=== PATIENT | female | born 1995 | race Caucasian/White ===

== ENCOUNTER → 2023-09-21 09:34 | Outpatient (BNVA) | payer OTHER, SELFPAY | PROVIDERS: Visit Provider Physician Assistant Medical | DX: S46.212A Strain of muscle, fascia and tendon of other parts of biceps, left arm, initial encounter (principal); X50.0XXA Overexertion from strenuous movement or load, initial encounter | CPT/HCPCS: 99202 ==

== ENCOUNTER → 2023-09-25 12:48 | Outpatient (BNVA) | payer OTHER, SELFPAY | PROVIDERS: Visit Provider Registered Nurse | DX: S46.212A Strain of muscle, fascia and tendon of other parts of biceps, left arm, initial encounter (principal); X50.0XXA Overexertion from strenuous movement or load, initial encounter | CPT/HCPCS: 99203 ==

== ENCOUNTER → 2023-10-03 11:09 | Outpatient (BNVA) | payer OTHER, SELFPAY | PROVIDERS: Visit Provider Physician Assistant Medical | DX: S46.212A Strain of muscle, fascia and tendon of other parts of biceps, left arm, initial encounter (principal); X50.0XXA Overexertion from strenuous movement or load, initial encounter | CPT/HCPCS: 99213 ==

== ENCOUNTER 2024-12-27 10:44 | Outpatient (AMB) | payer BC, SELFPAY ==
--- NOTE | 2024-12-27 10:47 | MHC.PC.OV ---
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 Intake Note: New patient to establish care and cpe Conveyor Belt Repairer Required: No Allergies preservative Allergy (Severe, Uncoded 12/27/24 11:13) Unknown Medication List - Last Reviewed 12/27/24 by Karina Krishnan MA No Known Home Meds Tobacco use date assessed: 12/27/24 Dental Screening Dental Screen Date: 12/27/24 Did you have a dental visit in the last 12 months?: Yes Did you have a dental problem in the last 6 months where you did not have access to dental care?: No Was dental information given to patient?: Patient has dentist HPI HPI Comments History of Present Illness Details 29 y/o F with psoriasis, obesity, eczema, gluten sensitivity, LIBERTY, Fhx celiac, PVC surgery: R ACL reconstruction, R patella tendon debridement Fhx: Mom asthma, HLD; Dad HTN HLD; PGM HTN HLD CVD; MGF esop ca; PGF HTN HLD CVD Health Maintenance Flu 12/2024 Tdap declined [facility] 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 Stress-induced Anxiety: - Anxiety symptoms; previous Venlafaxine use discontinued. Not in counseling currently; was and declined. Review of Systems - Gastrointestinal: Reports bloating, cramping, discomfort. Denies other unusual symptoms. - Cardiovascular: Reports PVC occurrences. - Skin: Reports psoriasis, rashes, decreased since eliminating gluten. - Endocrine: Reports hair loss, heavier periods. - Psychological: Reports anxiety exacerbated by GI issues. Physical Exam General: Well developed, well nourished, in no acute distress. Appears stated age. Head: Normocephalic, atraumatic. Eyes: Pupils are equal, round and reactive to light and accommodation. Conjunctivae are clear. Vision grossly normal. Lungs: Clear to auscultation bilaterally. No rales, rhonchi or wheeze noted. Good air flow in all johansen. Heart: Regular rate and rhythm. No murmurs, click, rubs or gallops are noted. Abdomen: Bowel sounds present in all quadrants. The abdomen is soft, nontender, with no masses or organomegaly noted. No hernias are noted. Musculoskeletal: Joints are nontender, without swelling, redness, or effusions. Pulses: Peripheral pulses are equal and palpable bilaterally. Extremities: No clubbing, cyanosis nor edema is noted. Psych: Mood and affect appropriate. Results Pending Discussion Notes I discussed the patient's gastrointestinal symptoms, attributed largely to gluten sensitivity and possible IBS. The patient noted significant improvement after eliminating gluten but experienced worsened symptoms following accidental gluten ingestion. Given the family history of celiac disease, I explained potential investigations and dietary recommendations. I noted the association between her anxiety and gastrointestinal issues and discussed stress-management strategies. A stool test for H. pylori and fecal calprotectin will be performed. I addressed potential hormonal imbalances affecting menstrual and hair loss concerns with plans for comprehensive lab work. We proceeded to discuss the utility of food supplements and the necessity of pursuing further GI evaluation to ensure comprehensive assessment. Referral recommendations to both gastroenterology and INSPECTING MACHINE ADJUSTER were provided given family and personal health planning considerations. Patient was given time to ask questions. All questions were answered to their satisfaction. Assessment and Plan 1. Obesity - Monitor diet and exercise. 2. Psoriasis - Consider dermatological review prn; gluten-free diet effective. 3. Irritable Bowel Syndrome (IBS) - Continue diet; stool test for H. pylori ordered. 4. Premature Ventricular Contractions (PVCs) - Consider Metoprolol PRN for exacerbations. 5. Gluten Sensitivity - Adherence to gluten-free diet; further testing and referral as needed. Asked her to upload results from previous provider to the portal for my review 6. Stress-induced Anxiety - Offered and declined meds at this time 7. refer to tubular products fabricator for heavy menses and family planning. Check PCOS labs Patient Instructions - Maintain gluten-free diet. - Complete laboratory tests as instructed. - Monitor symptoms and report any significant changes. - Follow up with referrals to specialist services. - Implement stress management techniques. - RTO 4 weeks for CPE and to fu on above, sooner PRN Consent Consent was obtained from the patient for lab testing including stool H. pylori and fecal calprotectin as well as referrals to gastroenterology and INSPECTING MACHINE ADJUSTER specialists. The patient understood the purpose of the tests, the procedure, and potential outcomes, and agreed to proceed with the testing and referrals. The benefits and necessity of dietary management, particularly gluten avoidance, were reiterated along with implications of accidental gluten exposure. Patient was informed and verbally consented to the use of an ambient scribe for clinic note documentation during this visit. Total time spent caring for the patient today was 30 minutes. This includes time spent before the visit reviewing the chart, time spent during the visit, and time spent after the visit on documentation, reviewing laboratory results, diagnostic imaging, medications, performing a medically necessary evaluation, counseling on diagnoses, care coordination, ordering appropriate tests, ordering appropriate medications, review of tests performed by other providers, reporting test results with the patient, communication with other healthcare providers. [facility] Medical History (Updated 12/27/24 @ 11:46 by Karina Krishnan MA) Patellar tendon rupture ACL (anterior cruciate ligament) rupture Anxiety Eczema Palpitations Surgical History (Updated 12/27/24 @ 11:47 by Karina Krishnan MA) No pertinent past surgical history Family History (Updated 12/27/24 @ 11:50 by Karina Krishnan MA) Mother Asthma High cholesterol Father HTN (hypertension) High cholesterol Paternal Grandmother HTN (hypertension) High cholesterol Cardiovascular disease Mental health disorder Paternal Grandfather HTN (hypertension) High cholesterol Cardiovascular disease Maternal Grandfather Esophagus cancer Social History (Updated 12/27/24 @ 11:00 by Karina Krishnan MA) Household Members: Significant Other Both parents involved: No Caregiver staying overnight: No Housing: House Are you a primary career guidance technician to a significant other at home: No Do you presently have visiting nurse or other home services: No 75 years or older and lives alone: No Alcohol intake: never Patient Tobacco Use Status: Never used Tobacco e-Cigarette/Vaping Use: Never Used Second Hand Smoke Exposure: No service: No Current occupational status: employed 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 1. Little interest or pleasure in doing things: not at all 2. Feeling down, depressed, or hopeless: not at all 3. Trouble falling or staying asleep, or sleeping too much: several days 4. Feeling tired or having little energy: more than half the days 5. Poor appetite or overeating: several days 6. Feeling bad about yourself - or that you are a failure or have let yourself or your family down: not at all 7. Trouble concentrating on things, such as reading the newspaper or watching television: several days 8. Moving or speaking so slowly that other people could have noticed. Or the opposite - being so fidgety or restless that you have been moving around a lot more than usual: not at all 9. Thoughts that you would be better off or of hurting yourself in some way: not at all Total score: 5 Depression Screening Interpretation: Positive Depression Screening Done: Yes 80773 - PHQ-9 Billing: Yes Source: Developed by Drs. Grant Odell, Yulisa Roach, Alfred Dejesus and colleagues, with an educational johnna from [employer]. Thrive Questionnaire Date Thrive assessed: 12/27/24 I am a: Patient What is your living situation today?: I have a steady place to live Within the past 12 months, did the food you bought not last and you didn't have the money to get more?: Never true Within the past 12 months, did you worry whether your food would run out before you got money to buy more?: Never true Do you have trouble paying for medicines?: I choose not to answer this question Do you have trouble getting transportation to medical appointments?: No Do you have trouble paying your heating and electricity bill?: No Do you have trouble taking care of your child, family member or friend?: No Do you have trouble with day-to-day activities such as bathing, preparing meals, shopping, managing finances, etc.?: No Are you currently unemployed and looking for a job?: No Are you interested in more education?: Yes Currently or been in a relationship where the following occur: No concerns reported THRIVE Score: 0 AUDIT C Alcohol Use Questionnaire (AUDIT-C) 1. How often do you have a drink containing alcohol?: Never 3. How often do you have six or more drinks on one occasion?: Never Total Score: 0 Score Reviewed/Action Taken: Yes LIBERTY-7 AMB Questionnaire LIBERTY-7 Date LIBERTY - 7 assessed: 12/27/24 Feeling nervous, anxious, or on edge: 1 = Several days Not being able to stop or control worryin = Several days Worrying too much about different things: 1 = Several days Trouble relaxin = Several days Being so restless that it is hard to sit still: 0 = Not at all Becoming easily annoyed or irritable: 1 = Several days Feeling afraid as if something awful might happen: 0 = Not at all Total LIBERTY-7 score (0-4 normal; 5-9 mild; 10-14 moderate; 15-21 severe): 5 Source: Developed by Drs. Grant Odell, Yulisa Roach, Alfred Dejesus and colleagues, with an educational johnna from [employer]. LIBERTY-7 Assessment Billing LIBERTY-7 Assessment Tool: LIBERTY-7 Assessment 56443 Physical exam (Primary Care) Vital Signs: Last Vital Signs Temp 97.1 F 12/27/24 10:53 Pulse 77 12/27/24 10:53 Resp 12 12/27/24 10:53 BP 122/72 12/27/24 10:53 Pulse Ox 100 12/27/24 10:53 Oxygen Delivery Method Room Air 12/27/24 10:53 BMI result Body Mass Index 30.6 BMI Assessment/Plan discussion: High BMI High, discussed plan: lifestyle Tobacco/Smoking Status: Tobacco use Status Tobacco use date assessed 12/27/24 12/27/24 10:51 Patient Tobacco Use Status Never used Tobacco 12/27/24 11:00 e-Cigarette/Vaping Use Never Used 12/27/24 11:00 PHQ-9: PHQ-9 Score PHQ-9: Total score 0 12/27/24 11:42 Depression Screening Interpretation: Positive Thrive Assessment: Date of Thrive Assessment Date Thrive assessed 12/27/24 12/27/24 10:51 Currently or been in a relationship where the following occur: No concerns reported Coding Level of Care Code New Pt Level 3 (62938) Complex EM visit Add On G2211 Diagnoses Encounter to establish care with new provider Z76.89 Psoriasis L40.9 Obesity (BMI 30-39.9) E66.9 Menorrhagia with regular cycle N92.0 Menorrhagia type: with regular cycle Hair loss L65.9 Non-celiac gluten sensitivity K90.41 Family history of celiac disease Z83.79 Hirsutism L68.0 Family planning initiation Z30.09 Abdominal bloating with cramps R14.0; R10.9 LIBERTY (generalized anxiety disorder) F41.1 Hx of trauma Z87.828 Tetanus, diphtheria, and acellular pertussis (Tdap) vaccination declined Z28.21 Additional Codes LIBERTY-7 Assessment Billing - LIBERTY-7 Assessment Tool: LIBERTY-7 Assessment 33610 ([id number]) PHQ-9 - 46483 - PHQ-9 Billing: Yes ([id number]) Assessment & Plan Assessment & Plan (1) Encounter to establish care with new provider: Code(s): Z76.89 - Persons encountering health services in other specified circumstances (2) Psoriasis: Code(s): L40.9 - Psoriasis, unspecified Category: Medical (3) Obesity (BMI 30-39.9): Code(s): E66.9 - Obesity, unspecified Category: Medical (4) Menorrhagia: Code(s): N92.0 - Excessive and frequent menstruation with regular cycle Category: Medical Qualifiers: Menorrhagia type: with regular cycle Qualified Code(s): N92.0 - Excessive and frequent menstruation with regular cycle (5) Hair loss: Code(s): L65.9 - Nonscarring hair loss, unspecified Category: Medical (6) Non-celiac gluten sensitivity: Code(s): K90.41 - Non-celiac gluten sensitivity Category: Medical (7) Family history of celiac disease: Code(s): Z83.79 - Family history of other diseases of the digestive system Category: Medical (8) Hirsutism: Code(s): L68.0 - Hirsutism Category: Medical (9) Family planning initiation: Code(s): Z30.09 - Encounter for other general counseling and advice on contraception Category: Social Hx (10) Abdominal bloating with cramps: Code(s): R14.0 - Abdominal distension (gaseous); R10.9 - Unspecified abdominal pain Category: Medical (11) LIBERTY (generalized anxiety disorder): Code(s): F41.1 - Generalized anxiety disorder Category: Medical (12) Hx of trauma: Code(s): Z87.828 - Personal history of other (healed) physical injury and trauma Category: Medical (13) Tetanus, diphtheria, and acellular pertussis (Tdap) vaccination declined: Code(s): Z28.21 - Immunization not carried out because of patient refusal Category: Medical Plan . Orders: Orders Complete Blood Count no Diff Today K90.41 - Non-celiac gluten sensitivity, L65.9 - Nonscarring hair loss, unspecified, L68.0 - Hirsutism, N92.0 - Excessive and frequent menstruation with regular cycle, Z83.79 - Family history of other diseases of the digestive system Lipid Panel Today K90.41 - Non-celiac gluten sensitivity, L65.9 - Nonscarring hair loss, unspecified, L68.0 - Hirsutism, N92.0 - Excessive and frequent menstruation with regular cycle, Z83.79 - Family history of other diseases of the digestive system Microalbumin, Random (w Creat) Today K90.41 - Non-celiac gluten sensitivity, L65.9 - Nonscarring hair loss, unspecified, L68.0 - Hirsutism, N92.0 - Excessive and frequent menstruation with regular cycle, Z83.79 - Family history of other diseases of the digestive system Vitamin B12 and Folate Today K90.41 - Non-celiac gluten sensitivity, L65.9 - Nonscarring hair loss, unspecified, L68.0 - Hirsutism, N92.0 - Excessive and frequent menstruation with regular cycle, Z83.79 - Family history of other diseases of the digestive system Vitamin D 25-OH Total Today K90.41 - Non-celiac gluten sensitivity, L65.9 - Nonscarring hair loss, unspecified, L68.0 - Hirsutism, N92.0 - Excessive and frequent menstruation with regular cycle, Z83.79 - Family history of other diseases of the digestive system Ferritin Today K90.41 - Non-celiac gluten sensitivity, L65.9 - Nonscarring hair loss, unspecified, L68.0 - Hirsutism, N92.0 - Excessive and frequent menstruation with regular cycle, Z83.79 - Family history of other diseases of the digestive system Testosterone, Free/Total Today K90.41 - Non-celiac gluten sensitivity, L65.9 - Nonscarring hair loss, unspecified, L68.0 - Hirsutism, N92.0 - Excessive and frequent menstruation with regular cycle, Z83.79 - Family history of other diseases of the digestive system Progesterone Today K90.41 - Non-celiac gluten sensitivity, L65.9 - Nonscarring hair loss, unspecified, L68.0 - Hirsutism, N92.0 - Excessive and frequent menstruation with regular cycle, Z83.79 - Family history of other diseases of the digestive system Calprotectin, Fecal Today K90.41 - Non-celiac gluten sensitivity, R10.9 - Unspecified abdominal pain, R14.0 - Abdominal distension (gaseous), Z83.79 - Family history of other diseases of the digestive system Comprehensive Met. Panel Today K90.41 - Non-celiac gluten sensitivity, L65.9 - Nonscarring hair loss, unspecified, L68.0 - Hirsutism, N92.0 - Excessive and frequent menstruation with regular cycle, Z83.79 - Family history of other diseases of the digestive system Hemoglobin A1c Today K90.41 - Non-celiac gluten sensitivity, L65.9 - Nonscarring hair loss, unspecified, L68.0 - Hirsutism, N92.0 - Excessive and frequent menstruation with regular cycle, Z83.79 - Family history of other diseases of the digestive system TSH reflex Free T4 Today K90.41 - Non-celiac gluten sensitivity, L65.9 - Nonscarring hair loss, unspecified, L68.0 - Hirsutism, N92.0 - Excessive and frequent menstruation with regular cycle, Z83.79 - Family history of other diseases of the digestive system H pylori Ag Stool Today K90.41 - Non-celiac gluten sensitivity, R10.9 - Unspecified abdominal pain, R14.0 - Abdominal distension (gaseous), Z83.79 - Family history of other diseases of the digestive system Referrals INSPECTING MACHINE ADJUSTER Referral N92.0 - Excessive and frequent menstruation with regular cycle, Z12.4 - Encounter for screening for malignant neoplasm of cervix, Z30.09 - Encounter for other general counseling and advice on contraception Gastroenterology Referral K90.41 - Non-celiac gluten sensitivity, R10.9 - Unspecified abdominal pain, R14.0 - Abdominal distension (gaseous), Z83.79 - Family history of other diseases of the digestive system Patient Instructions: Walk-In Care (Urgent Care): We Make it Easy Walk-in for urgent medical issues such as: ? Seasonal Allergies ? Insect Bites ? Cough ? Diarrhea ? Acute Asthma Attacks ? Back, Knee or Joint Pain ? Ear Infection ? Fever without a Rash ? Headaches ? Nausea ? [facility], Rash or Skin Irritation ? Sore Throat ? Sports Physicals ? Vomiting Most insurances are accepted. Patients do not need to be part of the [facility] to seek care at the walk-in clinic. Locations [address] [place] [address] Open Monday through Monday 8am-5pm *Hours may vary due to staffing availability. To confirm Walk-In Care hours please call. [facility] , [place] [address] ? [phone] [facility] Walk-In Care in [place] provides services to ages 18 and over. Open Monday-Monday: 7 a.m. to 5 p.m. and Monday: 9 a.m. to 3 p.m.* *Hours may vary due to staffing availability. To confirm Walk-In Care hours in [place], please call [phone]. [address] [place] [id number] ? [phone] [facility] Walk-In Care in [place] provides services to ages 12 and over. Open Monday-Monday: 8 a.m. to 5 p.m. Hours may vary due to staffing availability. To confirm Walk-In Care hours in [place], please call [phone]. LABORATORY SERVICES: [facility] ? Primary Location [address] [place] [address] Monday through Monday 6:00 AM ? 5:00 PM Monday 7:00 AM ? 11:00 AM* [phone] The [facility] Lab is centrally located near the front entrance of the [facility] for easy outpatient access. Convenient parking is provided for outpatients. *Hours may vary due to staffing availability. To confirm Laboratory hours for any location, please call [phone]. Offsite Location For your convenience, we offer offsite laboratory draw stations at the following locations: [address] [place] [address] ? [facility] [address] [facility], [address] Monday through Monday 7:30 AM ? 1:00 PM* [phone] *Hours may vary due to staffing availability. To confirm Laboratory hours for any location, please call [phone]. [place] ? [address] Monday through Monday 6:00 AM ? 3:30 PM* Monday 6:30 AM ? 3 PM* [phone] *Hours may vary due to staffing availability. To confirm Laboratory hours for any location, please call [phone] [place] [address] Monday through Monday 7:30 AM ? 4:00 PM* [phone] *Hours may vary due to staffing availability. To confirm Laboratory hours for any location, please call [phone] [place] [address] Monday through 9:00 AM ? 4:00 PM* *Hours may vary due to staffing availability. To confirm Laboratory hours for any location, please call [phone]. Appointments are not necessary. Walk-ins are welcome. Like all the departments throughout the [facility], our Lab undergoes frequent reviews to ensure the quality and accuracy of test results, and our staff takes special pride in its status as a nationally accredited facility. Patient Portal: [facility] ONE PATIENT. ONE RECORD. BETTER CARE. [facility] has a fully integrated, cutting-edge mobile electronic health information system that has revolutionized the way we care for our patients and manage our organization. This system improves communication and coordination enabling us to provide safe, higher-quality care, and an overall positive experience for staff and patients. Our first priority, as always, is to deliver the highest quality care possible. The system is running in the background supporting that priority. This portal is for all [facility] services and practices. If you are experiencing any technical difficulties with enrolling or logging into the Patient Portal please complete the [facility] Patient Portal Technical Support Form. [facility] now offers a new secure on-line interactive tool for patients to review their health information ? ?Patient Portal. This interactive web portal will enable patients and their families to take an active role in their care by providing easy, secure access to their health information via the internet. The Patient Portal provides patients with instant access to their health information, including laboratory results, medications, allergies, demographic information, visit history, and more. In addition to managing their own care, parents and health care proxies with authorized consent will appreciate the ability to access the records of those individuals for whom they provide care. Please note: if you wish to gain access (Proxy) to another patient?s portal, you will be required to come to the Medical Records Department in person at [facility]. Both the patient giving proxy access and the proxy will need to provide photo identification and complete the appropriate authorization. The Patient Portal also allows track their appointments online. The [facility] Patient Portal also saves patients time by allowing them to submit updates to their demographic and contact information prior to their visits. Portal email notifications will also alert patients to any new activity on their portal, such as test results and new appointments. In order to initially enroll in the [facility] Patient Portal, you will need to enter some required information including the following: your [facility] Medical Record number your personal home email address name date of Please note: In order to enroll in the [facility] Patient Portal, we need to have your email address on file in your electronic medical record. ?The email address needs to be specific for one person (yourself) in order for your Portal enrollment to be successful. ?You can update your email address in person with our Registration staff when you are registering for a hospital visit. ?Otherwise, you will need to come to the Health Information Management (Medical Records) Department at [facility]. ?We are open from Monday ? Monday from 7:30 a.m. ? 4:30 p.m. ?You will be required to present a photo id. Once you have successfully enrolled in the Patient Portal, you will receive a one-time user id and password for the Portal, sent to your email address. ?This will allow you to log into the Patient Portal within 99 hrs and reset your own logon id and password, and define personal security questions. ?Once your permanent login and password have been set, you can log into the [facility] Patient Portal at any time via the blue button above or from the Portal Logon button on any page of the [facility] website. [facility] and [facility] encourage all of our patients to enroll in Patient Portal as it presents a valuable opportunity for patients and their families to actively participate in their care and stay healthy Welcome to [facility]. ?We look forward to working with you.
[2024-12-27 10:53] VITALS: BP 122/72; PULSE 77; RESP 12; TEMP 36.2; O2SAT 100; BMI 30.6
--- OUTSIDE RECORDS SUMMARY | 2024-12-27 13:11 | XMS_ITS | Data Portability ---
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 She experienced pain in the left bicep area during the incident but continued working through her shift. Hyun has a history of lifting weights four days a week and working out five to six days a week. She was cleared to return to work with instructions to avoid lifting heavy objects and take it easy. However, during a recent shift, Hyun felt a tearing sensation in her left bicep while pulling a patient up on a bed. Since then, she has experienced significant pain in the area, which has extended down her arm. She also noticed slight bruising and discoloration in the affected area. Hyun has been trying to rest her arm as much as possible and has taken szqc-wkk-uqoejwg naproxen for pain relief. She experiences increased pain during activities such as driving and lifting her arm to the floor. Pronation and supination of her hand cause significant discomfort. She has no significant past medical history takes no medications. She has no medication allergies. She denies tobacco use. No personal or family history of blood clots. Past medical, surgical, family and social history; Medications, Allergies and 12-point review of systems have been reviewed, updated and charted. Physical Examination: Height and weight as noted in chart. Constitutional: Patient pleasant, well appearing and in NAD. Mental status: Patient is alert and oriented to person, place and time. No short-term memory deficits. Psychiatric: Mood and affect are appropriate. Head: Normocephalic and atraumatic. Exterior inspection of the ears and nose was unremarkable. Hearing grossly intact. Eyes: Sclera are not blue. cushion worker II-XII are grossly intact. Full extraocular motion. Neck: Supple with age-appropriate ROM. No tracheal deviation. No obvious JVD. Respiratory: Non-labored breathing. Symmetric excursion. No audible wheezing or crackles. Peripheral Vascular: No peripheral edema. Distal pulses intact. Neurological: Peripheral motor and sensory exam normal and equal bilaterally. Skin: No rashes, lesions, wounds to the upper extremities. Normal turgor and coloration. Musculoskeletal: On examination of the left upper extremity, there is no effusion, erythema or ecchymosis. Active shoulder elevation to 160 and passive to 175 . She has pain in her biceps muscle belly with terminal elevation. External rotation to 60 bilaterally. Internal rotation to the thoracolumbar junction. 5/5 strength in rotator cuff testing. Negative impingement signs. No significant acromial clavicular joint or biceps groove tenderness. She does have tenderness directly over her biceps muscle belly. No deformity noted. Distal biceps intact. Imaging: X-rays ordered, obtained and reviewed at [facility]. These images included Grashey, scapular and axillary views of the left shoulder. No acute fractures or dislocations. Normal glenoid humeral joint space. Normal acromial humeral distance. No acromial clavicular joint arthrosis. Type II acromion. Normal soft tissue contours. No lesions of the humerus. 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 Proximal and distal biceps tendons intact on exam. I discussed etiology of the patient's symptoms with her at length. I recommended a conservative course to include rest, activity modification and oral anti-inflammatori es. I have also referred her to physical therapy to begin working on eccentric strengthening along with modalities. 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 She is okay to continue with lower extremity exercise at this time. A work note was provided. I will plan to see her back in 1 month for reevaluation. All questions and concerns addressed. Today's visit involved examining the patient, reviewing the history, reviewing the radiographic studies, counseling the patient regarding treatment options, and the administrative tasks including placing orders, preparing patient information and home handouts and preparing the visit note. This note was generated with [facility] [employer] speech recognition pyrometer operator dictation software. Please excuse any errors that may have been overlooked during review of this note. Sometimes, these errors may affect the content or meaning of a given sentence. Please call for corrections. [email or web address] Not available 09/29/2023 10:47:53 10/19/2023 10/19/2023 Chief Complaint: Left upper extremity biceps muscle strain, work-related injury HPI: Hyun, a 28-year-old sgmof-cbpm-ekarth nt female, presents with a left bicep injury as a result of a work-related injury on 09/25/2023. 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 She experienced pain in the left bicep area during the incident but continued working through her shift. Hyun has a history of lifting weights four days a week and working out five to six days a week. She was cleared to return to work with instructions to avoid lifting heavy objects and take it easy. However, during a recent shift, Hyun felt a tearing sensation in her left bicep while pulling a patient up on a bed. Since then, she has experienced significant pain in the area, which has extended down her arm. She also noticed slight bruising and discoloration in the affected area. Hyun has been trying to rest her arm as much as possible and has taken zptt-dvv-tvvcxgx naproxen for pain relief. I first evaluated her on 09/29/2023. Her history and exam are consistent with a left biceps muscle strain and I referred her to physical therapy and put her on light duty. Overall, she has had 70% improvement in symptoms. She has no significant past medical history takes no medications. She has no medication allergies. She denies tobacco use. No personal or family history of blood clots. Past medical, surgical, family and social history; Medications, Allergies and 12-point review of systems have been reviewed, updated and charted. Physical Examination: Height and weight as noted in chart. Constitutional: Patient pleasant, well appearing and in NAD. Mental status: Patient is alert and oriented to person, place and time. No short-term memory deficits. Psychiatric: Mood and affect are appropriate. Head: Normocephalic and atraumatic. Exterior inspection of the ears and nose was unremarkable. Hearing grossly intact. Eyes: Sclera are not blue. cushion worker II-XII are grossly intact. Full extraocular motion. Neck: Supple with age-appropriate ROM. No tracheal deviation. No obvious JVD. Respiratory: Non-labored breathing. Symmetric excursion. No audible wheezing or crackles. Skin: No rashes, lesions, wounds to the upper extremities. Normal turgor and coloration. Musculoskeletal: On examination of the left upper extremity, there is no effusion, erythema or ecchymosis. Biceps muscle contour and the left is consistent with the right side. She does exhibit tenderness at the myotendinous junction at her distal biceps, which is otherwise intact and palpable. Normal elbow and shoulder range of motion. 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 Proximal and distal biceps tendons intact on exam. Overall 70% improvement in symptoms over the past month. I discussed etiology of the patient's symptoms with her at length. I recommended a conservative course to include rest, activity modification and oral anti-inflammatori es. I want her to continue working in physical therapy including eccentric strengthening along with modalities. 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 She is okay to continue with lower extremity exercise at this time. A work note was provided. I will plan to see her back in 1 month for reevaluation and likely progress her back to full duty work thereafter.. All questions and concerns addressed. Today's visit involved examining the patient, reviewing the history, reviewing the radiographic studies, counseling the patient regarding treatment options, and the administrative tasks including placing orders, preparing patient information and home handouts and preparing the visit note. This note was generated with [facility] [employer] speech recognition pyrometer operator dictation software. Please excuse any errors that may have been overlooked during review of this note. Sometimes, these errors may affect the content or meaning of a given sentence. Please call for corrections. [email or web address] Not available 10/19/2023 14:14:51 11/21/2023 11/21/2023 Chief Complaint: Left upper extremity biceps muscle strain, work-related injury HPI: Hyun, a 28-year-old kfmsj-llab-crojsq nt female, presents with a left bicep injury as a result of a work-related injury on 09/25/2023. 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 She experienced pain in the left bicep area during the incident but continued working through her shift. Hyun has a history of lifting weights four days a week and working out five to six days a week. She was cleared to return to work with instructions to avoid lifting heavy objects and take it easy. However, during a recent shift, Hyun felt a tearing sensation in her left bicep while pulling a patient up on a bed. Since then, she has experienced significant pain in the area, which has extended down her arm. She also noticed slight bruising and discoloration in the affected area. Hyun has been trying to rest her arm as much as possible and has taken gmwl-gci-shaswjw naproxen for pain relief. I first evaluated her on 09/29/2023. Her history and exam are consistent with a left biceps muscle strain and I referred her to physical therapy and put her on light duty. Overall, she feels that she is 95% better and has been making great progress with physical therapy. She is happy with her progress. She has no significant past medical history takes no medications. She has no medication allergies. She denies tobacco use. No personal or family history of blood clots. Past medical, surgical, family and social history; Medications, Allergies and 12-point review of systems have been reviewed, updated and charted. Physical Examination: Height and weight as noted in chart. Constitutional: Patient pleasant, well appearing and in NAD. Mental status: Patient is alert and oriented to person, place and time. No short-term memory deficits. Psychiatric: Mood and affect are appropriate. Head: Normocephalic and atraumatic. Exterior inspection of the ears and nose was unremarkable. Hearing grossly intact. Eyes: Sclera are not blue. cushion worker II-XII are grossly intact. Full extraocular motion. Neck: Supple with age-appropriate ROM. No tracheal deviation. No obvious JVD. Respiratory: Non-labored breathing. Symmetric excursion. No audible wheezing or crackles. Skin: No rashes, lesions, wounds to the upper extremities. Normal turgor and coloration. Musculoskeletal: On examination of the left upper extremity, there is no effusion, erythema or ecchymosis. Biceps muscle contour and the left is consistent with the right side. No tenderness along the biceps muscle belly. Normal elbow and shoulder range of motion. 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 Proximal and distal biceps tendons intact on exam. Overall, she reports 95% improvement in symptoms over the past couple months. I discussed etiology of the patient's symptoms with her at length. I recommended a conservative course to include physical therapy including eccentric strengthening along with modalities. 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 A work note was provided. At this point, I can see her back as needed. All questions and concerns addressed. Today's visit involved examining the patient, reviewing the history, reviewing the radiographic studies, counseling the patient regarding treatment options, and the administrative tasks including placing orders, preparing patient information and home handouts and preparing the visit note. This note was generated with [facility] speech recognition pyrometer operator dictation software. Please excuse any errors that may have been overlooked during review of this note. Sometimes, these errors may affect the content or meaning of a given sentence. Please call for corrections. [email or web address] Not available 11/21/2023 11:44:41 Plan of Treatment Reminders Order Date Submit Date Provider Last Modified By Organization Details Last Modified Time Details Appointments None recorded. Lab None recorded. Referral physical therapist referral - Eccentric strengtheni ng and modalities as tolerated. 2023 024 [email or web address] 4 [facility] , [address] , [address], [place], [address], 4 17:29:07 physical therapist referral - Eccentric strengtheni ng and modalities as tolerated. 2023 024 Not available 13:21:11 Procedures None recorded. Surgeries None recorded. Imaging XR, shoulder, 2 or more view - rm 217 lt shldr cz protocol [email or web address] [facility], [address], [facility] [address], [place], [address], 4 11:28:32 Medication Orders None recorded. Patient TargetsNo targets recorded. Patient InstructionsNo instructions recorded. Reason for Referral Physical Therapist Referral for Tendinitis of long head of biceps brachii of left shoulder Eccentric strengthening and modalities as tolerated. Referring Physician: Michael Ding, Orthopedic Surgery, [id number] Encounter Date: 09/29/2023 Physical Therapist Referral for Biceps tendinitis Eccentric strengthening and modalities as tolerated. Referring Physician: Michael Ding, Orthopedic Surgery, [id number] Encounter Date: 10/19/2023 Results Created Date Observation Date Name Description Value Unit Range Abnormal Flag Note LastModifiedBy Organization Detail LastModifiedTime 09/29/19 24 09/29/2023 XR, shoul bob, 2 or more view http:/ [email or web address] ?Encry pted=s hAaTro YD8dLq bEUv6g %2BXZw aYqtaq 0bqfl% 2Fg9IQ a4ajBk vP9nXo QUaueC m3YtLR FvZlgJ JJ8mAn HZtai3 1k9189 AC0KpY nqNWaL eUC8mr 84%3D INTERFACE [facility] [address], [place], [address], 09/29/2023 10:22:08 09/29/19 24 09/29/2023 XR, shoul bob, 2 or more view [email or web address] ?Encry pted=s hAaTro YD8dLq bEUv6g %2BXZw aYqtaq 0bqfl% 2Fg9IQ a4ajBk vP9nXo QUaueC m3YtLR FvZlgJ JJ8mAn HZtai3 4m2168 AC0KpY nqNWaL eUC8mr 84%3D INTERFACE [facility] [address] [facility] [address], [place], [address], 09/29/2023 10:22:11 Result Notes Documentation Provider Name and Address Organization Details Recorded Time Xr, Shoulder, 2 Or More View : [email or web address] Encrypted=bjTtXqyFO2cBmhU Uv6g%5TEJawKkuwt3fvnf%2Fg 0AEa2hgUbjA0nSaGGupfWd3Gf RKQfZhiDZW2cXnGHbcr33q913 5ZG2AoOxfGFyDtGH5lc93%3D Not Available [facility] 09/29/2023 10:2 2:09 Xr, Shoulder, 2 Or More View : [email or web address] Encrypted=teSxPnyRI3iBnfX Uv6g%2YCWwgYgznk4mhbi%2Fg 7PZk5joMhaH0lZyOWurdCh6Ep SZVyUhdGET8cItPJvsa69j763 5IU4KrWccZHhJzPU1gf14%3D Not Available [facility] 09/29/2023 10:2 2:11 Procedures Surgical History Date Name Laterality Status Provider Name and Address Organization Details Recorded Time 7 Knee Surgery completed JAZIEL Rojas [facility] 09/29/2023 10:16:06 06/13/201 3 Knee Surgery completed JAZIEL BUSTAMANTE [facility] 09/29/2023 10:16:06 Imaging Results None recorded. Procedure Notes None recorded. Medical Equipment None Reported. Allergies Allergen ID Allergen Name Allergen Category Reaction Reaction Severity Criticality Documentation Date Start Date Code Code System Note Provider Name and Address Organization Details Recorded Time 452279 preservat rasta free medicatio n Not available Not available Not available 09/29/20232020 JAZIEL cope [place] - [facility] 10:16:06 Medications Name Sig Start Date Stop Date Status Note LastModified by Organization Details LastModified Time venlafaxine ER 37.5 mg capsule,exte nded release 24 hr TAKE 1 CAPSULE BY MOUTH EVERY DAY active Not Available Not Available No t Available ibuprofen 800 mg tablet TAKE 1 TABLET BY MOUTH EVERY 6 HOURS WITH FOOD active Not Available Not Available No t Available tretinoin 0.025 % topical cream PLEASE SEE ATTACHED FOR DETAILED DIRECTIONS active Not Available Not Available N ot Available tretinoin 0.05 % topical cream APPLY SPARINGLY TO FACE AT BEDTIME FOR ACNE. active Not Available Not Available No t Available ciprofloxaci n 500 mg tablet TAKE ONE TAB BY MOUTH TWICE DAILY FOR 3 DAYS active Not Available Not Available No t Available acetaminophe n 500 mg tablet TAKE 1 TABLET BY MOUTH EVERY 4 TO 6 HOURS NEEDED active Not Available Not Available No t Available triamcinolon e acetonide 0.025 % topical cream APPLY SPARINGLY TO AFFECTED AREAS TWICE DAILY NEEDED 60 GRAM TUBE active Not Available Not Available No t Available calcipotrien e 0.005 % topical cream APPLY TO PSORIASIS TWICE A DAY FOR MAINTENANCE . active Not Available Not Available No t Available betamethason e, augmented 0.05 % topical ointment APPLY TO PSORIASIS TWICE A DAY NEEDED. active Not Available Not Available N ot Available methylpredni solone 4 mg tablets in a dose pack TAKE 6 TABLETS ON DAY 1 DIRECTED ON PACKAGE AND DECREASE BY 1 TAB EACH DAY FOR A TOTAL OF 6 DAYS active Not Available Not Available No t Available chlorhexidin e gluconate 0.12 % mouthwash RINSE MOUTH WITH 15ML (1 CAPFUL) FOR 30 SECONDS IN MORNING AND EVENING AFTER BRUSHING, THEN SPIT active Not Available Not Available No t Available Zoryve 0.3 % topical cream Apply TO psoriasis once daily FOR maintenance . active Not Available Not Available No t Available Vitals Date Recorded Body height Body weight Provider Name and Address Organization Details Last Updated DateTime 09/29/2023 165.1 cm 74547.78 g JAZIEL BUSTAMANTE [facility] 09/29/2023 10:52:33 Date Recorded Body height Body mass index (BMI) Body weight Provider Name and Address Organization Details Last Updated DateTime 10/19/2023 165.1 cm 26.6 kg/m2 37700.78 g JAZIEL BUSTAMANTE [facility] 10/19/2023 13:37:21 Date Recorded Body height Body mass index (BMI) Body weight Provider Name and Address Organization Details Last Updated DateTime 11/21/2023 165.1 cm 26.6 kg/m2 39103.78 g JAZIEL BUSTAMANTE [facility] 11/21/2023 11:21:15 Social History Question Answer Notes LastModified by [employer] ion Details LastModified Time Tobacco Smoking Status Never Smoker [facility] 10:16:06 What Is Your Relationship Status? Single [email or web address] Information not available 09/29/2023 Sex: Unknown Functional Status Question Answer Note LastModified by [employer] ion Details LastModified Time How many times per week do you consume alcohol? Less than 1 time per week [email or web address] Information not available 09/29/2023 Do you use any illicit or recreational drugs? No [email or web address] Information not available 09/29/2023 Do you or have you ever used any other forms of tobacco or nicotine? No Information not available 09/29/2023 Do you or have you ever used e-cigarettes or vape? Never used electronic cigarettes [email or web address] Information not available 09/29/2023 Mental Status None recorded. Family History Nothing Reported. Medical History Condition Response Allergies/Hayfever Y Gynecological HistoryNo gynecological history recorded. Obstetrics History GPAL:G 0 P 0 0 0 0 Past Encounters Encounter ID Performer Location Encounter Start Date Encounter Closed Date Diagnosis/Indication Diagnosis SNOMED-CT Code Diagnosis ICD10 Code Diagnosis IMO Codes Diagnosis Note [id number] MD [facility] [address] [place] [address] 09/29/2023 09:59:54 10/24/2023 14:38:16 Pain of left shoulder joint 0241064964 5584470 M25.512 Tendinitis of long head of biceps brachii of left shoulder 493897871 M75.22 Left biceps strain 61681 38031 6921365 S46.212A [id number] MD [facility] Mar[facility] [address] [place] [address] 10/19/2023 13:20:32 11/16/2023 07:47:14 Biceps tendinitis 843581614 M75.22 Strain of biceps brachii muscle and/or tendon 929743594 S46.112D [id number] [facility] [address] [place] [address] [address] [place] [address] 11/21/2023 11:16:41 12/14/2023 12:15:23 Strain of muscle of left upper arm 7322071178 6214885 S46.912D Health Concerns Section Related Observation LastModified by Organization Detai ls LastModified Time None Recorded Concern Status LastModified by Organization Details LastModified Time None Recorded Advance Directives Directive None Recorded Payers Insurance Date Sequence Insurance Name Policy Number Policy Tam Covered Member ID Tam Member ID Guarantor Name 09/26/2023 [facility] Hyun Raymond OBGyn Episode No OBEpisode recorded.
== END 2024-12-27 13:20 | disposition home or self-care (01) ==
LOC: HO.HMCFM 10:45
PROVIDERS: PCP Nurse Practitioner Family; Visit Provider Nurse Practitioner Family
DX: N92.0 Excessive and frequent menstruation with regular cycle (principal); L40.9 Psoriasis, unspecified; E66.9 Obesity, unspecified; Z68.30 Body mass index [BMI] 30.0-30.9, adult; Z76.89 Persons encountering health services in other specified circumstances; L65.9 Nonscarring hair loss, unspecified; K90.41 Non-celiac gluten sensitivity; Z83.79 Family history of other diseases of the digestive system; L68.0 Hirsutism; Z30.09 Encounter for other general counseling and advice on contraception; R14.0 Abdominal distension (gaseous); R10.9 Unspecified abdominal pain

== ENCOUNTER 2024-12-27 10:44 | Outpatient (REF) | payer BC, OTHER, SELFPAY ==
--- OUTSIDE RECORDS SUMMARY | 2024-12-27 14:43 | XMS_ITS | Clinical Summary ---
Author Organization [facility] Address [address] [place] [address] Care Team Providers Care Admissions Coordinator Name Role Phone Ashleigh Lisa NP Primary Care Provider [phone] Medications ALPRAZolam (XANAX) 0.25 MG tablet TAKE 1 TO 2 TABS UP TO TWICE DAILY NEEDED FOR ANXIETY. DO NOT TAKE WITH ALCOHOL/OPERAT E MACHINERY 10 0 9 Active Triamcinolone Acetonide (Nasacort Allergy 24HR) 55 MCG/ACT nasal inhaler 0 9 Active Minocycline HCl (MINOCIN,DYNACI N) 50 MG capsule TAKE 1 CAPSULE AT BEDTIME. 0 9 Active Clindamycin Phosphate (CLEOCIN T) 1 % external solution 0 9 Active Levalbuterol Tartrate (XOPENEX HFA) 45 MCG/ACT inhaler Inhale 1-2 puffs 15-30 minutes prior to exercising. 1 2 9 Active Escitalopram Oxalate (LEXAPRO) 20 MG tablet TAKE 1 TABLET BY MOUTH DAILY 90 0 9 Active Adapalene (DIFFERIN) 0.3 % gel JUAN CARLOS PEA SIZED AMT EXT TO FACE QD 45 0 9 Active Fluticasone-John meterol (ADVAIR DISKUS) 100-50 MCG/ACT diskus inhaler INHALE 1 PUFF BY MOUTH EVERY 12 HOURS 3 0 0 Active Active Problems Problem Noted Date Diagnosed Date control counseling 05/03/2019 Acne 01/25/2019 Psoriasis 12/14/2018 Panic attacks 12/14/2018 Anxiety disorder 11/21/2018 Overview (04/16/2023): Impression - [id number]: not controlled. but denies SI/HI. PHQ9 score of 4. compliant and tolerant of meds, but having to use xanax more frequently 3-4x/week. referral to counseling to discuss recent traumatic work event. prescribed Lexapro. has tolerated well in past. start low dose at 10mg and can increase to 20mg in 3 weeks if not controlled. advised does take at least 4-6 weeks to notice full effect, but will send xanax in PRN to help bridge. f/u in 3 weeks. Impression - [id number]: not controlled. but denies SI/HI. PHQ9 score of 4. compliant and tolerant of meds, but having to use xanax more frequently 3-4x/week. referral to counseling to discuss recent traumatic work event. prescribed Lexapro. has tolerated well in past. start low dose at 10mg and can increase to 20mg in 3 weeks if not controlled. advised does take at least 4-6 weeks to notice full effect, but will send xanax in PRN to help bridge. 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 f/u in 3 weeks. Contraception management 09/21/2018 Seasonal allergies 09/21/2018 Asthma, exercise induced 09/21/2018 Immunizations Immunization Administration Dates Next Due Influenza,injectable,quad,Prsrv Fr 11/16/2018 Tdap 11/16/2018 Family History Medical History Relation Name Comments Hypertension Father hypertension : Father Asthma Mother asthma : Mother Relation Name Status Comments Father Mother Social History Tobacco Use Types Packs/Day Years Used Date Smoking Tobacco: Never Assessed Comments:Smoking Status:No c urrent tobacco use Comments Unknown Sex and Gender Information Value Date Recorded Sex Assigned at Not on file Legal Sex Female 12:43 PM EDT Gender Identity Not on file Sexual Orientation Not on file Last Filed Vital Signs Vital Sign Reading Time Taken Comments Blood Pressure 98/60 05/03/2019 10:08 AM EST Pulse 74 05/03/2019 10:08 AM EST Temperature 36.8 C (98.2 F) 05/03/2019 10:08 AM EST Respiratory Rate 16 05/03/2019 10:08 AM EST Oxygen Saturation - - Inhaled Oxygen Concentration - - Weight 76.7 kg (169 lb 0.1 oz) 05/03/2019 10:08 AM EST Height 165.1 cm (5' 5 ) 05/03/2019 10:08 AM EST Body Mass Index 28.12 05/03/2019 10:08 AM EST Plan of Treatment Health Maintenance Due Date Last Done Comments Hepatitis C Screening 1996 Pap Smear 2012 Hep B (1 of 3 - 19+ 3-dose series) 06/04/2015 Pneumococcal (1 of 2 - PCV) 06/04/2015 COVID-19 Vaccine (1 - 2024-2 6 season) 2024 Influenza (#1) 2024 11/16/2018 DTaP/Tdap/Td (2 - Td or Tdap) 11/16/2028 11/16/2018 Zoster (Shingrix) (1 of 2) 2046 Physical Discontinued 09/21/2018 LDL Cholesterol Discontinued 09/24/2018 EKG Discontinued 11/21/2018, 11/21/2018 HPV Vaccine (No Doses Required) Completed Hep A Aged Out No longer eligi ble based on patient's age to complete this topic Hib Aged Out No longer eligi ble based on patient's age to complete this topic Meningococcal ACWY Aged Out No longer eligible based on patient's age to complete this topic Procedures Procedure Name Priority Date/Time Associated Diagnosis Comments EKG 11/21/2018 10:15 AM EDT LIPID PANEL, PLASMA Routine 09/24/2018 9 :13 AM EDT from Last 3 Months or Most Recently Relevant to Health Maintenance Results * EKG (11/21/2018 10:15 AM EDT) Narrative 11/21/2018 10:15 AM EDT Ordered by an unspecified provider. us Unknown Provider CARDIOVASCULAR-NO INBASKET RTG Final Result * (ABNORMAL) LIPID PANEL, PLASMA (09/24/2018 9:13 AM EDT) Cholesterol 177 0 - 199 mg/dL PHCT CONVERSIONS Triglyceride 149 0 - 150 mg/dL PHCT CONVERSIONS VLDL Cholesterol 30 5 - 40 mg/dL PHCT CONVERSIONS HDL Cholesterol 48(L) 50 - 80 mg/dL PHCT CONVERSIONS LDL Cholesterol 99 0 - 100 mg/dL PHCT CONVERSIONS Cholesterol Non-HDL 129 0 - 130 mg/dl PHCT CONVERSIONS CHOL/HDL Ratio 3.7 PHCT CONVERSIONS 09/24/2018 9:13 AM EDT Narrative PHCT CONVERSIONS - 09/24/2018 8:15 PM EDT FASTING: YES Testing Performed at: [facility], [address] [place] [address], , Mechanical Press Operator: Hilary Post MD CL#[id number] Ashleigh Lisa [facility] Final Result PHCT CONVERSIONS from Last 3 Months or Most Recently Relevant to Health Maintenance Care Teams Admissions Coordinator Relationship Specialty Start Date End Date Ashleigh Lisa, [employer] [address] [place] [address] PCP - General 10/17/22
--- OUTSIDE RECORDS SUMMARY | 2024-12-27 14:43 | XMS_ITS | Clinical Summary ---
Author Organization [facility] Address [address] [place] [id number] Phone Care Team Providers Care Hydroelectric Plant Electrician Name Role Phone Torito Kumar MD Primary Care Provider [phone] Surgical History Surgery Date Site/Laterality Comments KNEE ARTHROSCOPY W/ ACL RECONSTRUCTION PROCEDURE:KNEE ARTHROSCOPY W/ ACL RECONSTRUCTION DEBRIDEMENT PATELLAR TENDON PROCEDURE:DEBRIDEMENT PATELLAR TENDON TYMPANOSTOMY TUBE PLACEMENT PROCEDURE:TYMPANOSTOMY TUBE PLACEMENT Medical History Medical History Date Comments Asthma DX:Asthma Allergic rhinitis DX:Allergic rh initis Allergic DX:Allergic Anxiety DX:Anxiety;COMME NT:used ot take lexapro & xanax Psoriasis DX:Psoriasis Acne DX:Acne Eczema DX:Eczema Family History Medical History Relation Name Comments ADD / ADHD Brother Hyperlipidemia Father Jone Hypertension Father Jone Cancer Maternal Grandfather Mike esophag eal Asthma Mother Emily Hyperlipidemia Mother Emily Heart disease Paternal Grandfather KS & A fib Relation Name Status Comments Brother Alive Father Jone Alive Maternal Grandfather Mike Mother Emily Alive Paternal Grandfather Social History Tobacco Use Types Packs/Day Years Used Date Smoking Tobacco: Never Smokeless Tobacco: Never Alcohol Use Standard Drinks/Week Comments Yes 0 (1 standard drink = 0.6 oz pur e alcohol) Comments Unknown Sex and Gender Information Value Date Recorded Sex Assigned at Not on file Legal Sex Female 10:24 AM EST Gender Identity Not on file Sexual Orientation Not on file Obstetrics History Last Filed Vital Signs Vital Sign Reading Time Taken Comments Blood Pressure 112/86 11/09/2023 10:54 AM EDT Pulse 72 11/09/2023 10:54 AM EDT Temperature - - Respiratory Rate - - Oxygen Saturation - - Inhaled Oxygen Concentration - - Weight 74.5 kg (164 lb 3.2 oz) 11/09/2023 10:54 AM EDT Height 167.6 cm (5' 6 ) 11/09/2023 10:54 AM EDT Body Mass Index 26.5 11/09/2023 10:54 AM EDT Plan of Treatment Health Maintenance Due Date Last Done Comments HIV Screening 02/08/2022 Hepatitis C Screening 02/08/2022 Social Influencers of Health Screening 02/08/2022 Cervical Cancer Screening: Pap Smear 12/24/2023 12/23/2020 Depression Screening 03/13/2024 COVID-19 Vaccine ( - season) 2024 Influenza Vaccine (#1) 2024 , 11/16/2018, 02/03/2015 Cholesterol Screening (Lipid Panel) 10/04/2028 10/05/2023, 10/05/2023 DTaP,Tdap,and Td Vaccines (8 - Td or Tdap) 11/16/2028 11/16/2018, 10/12/2007, 05/31/2001, Additional history exists RSV Immunization Adult Patients (1 - 1-dose 75+ series) 06/04/2071 Hepatitis B Vaccines Completed 03/20/1997, 1996, 1996 HIB Vaccines Completed 09/18/1997, 11/12, 1996, Additional history exists MMR Vaccines Completed 05/31/2001, 06/16/1997 Varicella Vaccines Completed 10/12/2007, 12/13/1997 HPV Vaccines Completed 04/23/2008, 10/2007, 10/12/2007 IPV Vaccines Completed 08/26/2009, 05/12, 1996, Additional history exists Meningococcal ACWY Vaccine Aged Out 11/02/2012, No longer eligible based on patient's age to complete this topic Hepatitis A Vaccines Aged Out No long er eligible based on patient's age to complete this topic Meningococcal B Vaccine Aged Out No l onger eligible based on patient's age to complete this topic Pneumococcal Vaccine: Pediatrics (0 to 5 Years) and At-Risk Patients (6 to 49 Years) Aged Out No longer eligible based on patient's age to complete this topic RSV Immunization Patients Under 20 months Aged Out No longer eligible based on patient's age to complete this topic Procedures Procedure Name Priority Date/Time Associated Diagnosis Comments PAP SMEAR Routine 12/23/2020 12:00 AM EDT from Last 3 Months or Most Recently Relevant to Health Maintenance Results * Pap smear (12/23/2020 12:00 AM EDT) Case Results Patient Name: HYUN RAYMOND MR#: [id number] Collected Date: 12/23/2020 Reported Date: 12/28/2020 Specimen #[id number] Final Diagnosis Satisfactory for evaluation. Endocervical transformation zone component present. Negative for Intraepithelial Lesion or Malignancy. Clinical Diagnosis Z01.419 Source: A: ThinPrep Imaged Pap Cervical-SC B: HPV Mandatory C: Chlamydia and GC DNA Probe Electronically Signed Out By THANH Plaza(ASCP) Addenda/Procedures HPV DNA PROBE, MANDATORY Ordered: 12/24/2020 Reported: 12/25/2020 HPV HIGH RISK: NEGATIVE None of the following High Risk human papillomavirus (HPV) types has been detected: 16,18,31,33,35,39, 45,51,52,56,58,59, 66,and 68. The Aptima HPV nucleic acid amplification assay manufactured by [employer] and performed on the [employer] System was used for the qualitative detection of E6/E7 viral messenger RNA (mRNA) from 14 high-risk types of (HPV) in cervical specimens. <<NOTE>> Clinical guidelines for follow up of patients screened with HPV testing can be found in the following reference: Shannon WK , et al. Use of primary high risk human papillomavirus testing for cervical cancer screening: Interim clinical guidance, Gynecol Oncol. 2015 Feb, 136(2):178-82. Procedure/Addend um Electronically Signed Out By System Interface CHLAMYDIA, GC DNA PROBE Ordered: 12/24/2020 Reported: 12/25/2020 SOURCE: CERVIX CHLAMYDIA DNA PROBE: NEGATIVE GC DNA PROBE: NEGATIVE Procedure/Addend um Electronically Signed Out By System Interface Note: The Pap test is a screening test with an inherent false negative rate. Automated prescreening of all liquid based specimens is performed by the [employer] [facility] unless otherwise stated. Test Performed by: [address] [address] Eunice Booker M.D., Director HISTORICAL TESTING LAB RESULTING AGENCY Comment:MR#: [id number] 12/23/2020 Torito Kumar MD LAB CYTOLOGY ORDERABLES Final Result HISTORICAL TESTING LAB RESULTING AGENCY from Last 3 Months or Most Recently Relevant to Health Maintenance Insurance [facility] Care Teams Hydroelectric Plant Electrician Relationship Specialty Start Date End Date Torito Kumar MD PCP - General Family Medicine 08/27/19
--- OUTSIDE RECORDS SUMMARY | 2024-12-27 14:43 | XMS_ITS ---
Author Name [facility] Organization Unknown History of Medication Use Medication Directions Dispensed Refills Start Date End Date Stat us venlafaxine ER 37.5 mg capsule,extended release 24 hr TAKE 1 CAPSULE BY MOUTH EVERY DAY 07/11/2024 active Zoryve 0.3 % topical cream Apply TO psoriasis once daily FOR maintenance. 10/10/2023 08/15/2024 completed tretinoin 0.05 % topical cream APPLY SPARINGLY TO FACE AT BEDTIME FOR ACNE. 09/15/2023 08/15/2024 completed betamethasone, augmented 0.05 % topical ointment Apply topically 2 (two) times a day. 12/29/2022 active triamcinolone acetonide 0.025 % topical cream APPLY SPARINGLY TO AFFECTED AREAS TWICE DAILY NEEDED 60 GRAM TUBE 10/13/2022 12/29/2022 completed clotrimazole-betamet hasone 1 %-0.05 % topical cream APPLY TO AFFECTED AREA TWICE A DAY 09/26/2022 12/29/2022 completed alprazolam 0.25 mg tablet TAKE 1 TABLET (0.25 MG TOTAL) BY MOUTH DAILY NEEDED. FOR ANXIETY 12/28/2020 04/28/2022 completed ondansetron 8 mg disintegrating tablet Take 1 tablet (8 mg total) by mouth continuous prn. 11/29/2020 active Allergies Allergen Reaction Severity Comment Documented Date Source Statu s DOUBLEDEX (PF) [facility] GLUTEN [facility] TUBERCULIN, PURIFIED PROTEIN DERIVATIVE HIVES [facility] Problems Problem Status Onset Date Problem Type Date of Resoluti on Source History of operative procedure on knee active 2012-09-26 ProblemAct [facility] Seasonal allergy active 2018-09-21 ProblemAct E [facility] Transient gluten intolerance active 2024-07-23 ProblemAct [facility] COVID-19 active 2023-02-27 ProblemAct [facility] Anxiety disorder active 2018-11-21 ProblemAct [facility] Psoriasis active 2018-12-14 ProblemAct [facility] T Acne active 2019-01-25 ProblemAct [facility] T Immunizations Vaccine Date Source Lot Number Status Influenza, injectable, Madin Ni Canine Kidney, preservative free, quadrivalent 12/23/2020 [facility] [id number] completed Influenza, injectable, quadr ivalent, preservative free 11/16/2018 [facility] [id number] completed tetanus toxoid, reduced diph theria toxoid, and acellular pertussis vaccine, adsorbed 11/16/2018 [facility] [id number] completed Influenza, injectable, quadr ivalent, preservative free 02/03/2015 [facility] completed meningococcal polysaccharide vaccine (MPSV4) 11/02/2012 [facility] completed poliovirus vaccine, live, oral 08/26/2009 [facility] completed human papilloma virus vaccine, quadrivalent 04/23/2008 [facility] completed human papilloma virus vaccine, quadrivalent 12/19/2007 [facility] completed human papilloma virus vaccine, quadrivalent 10/12/2007 [facility] completed meningococcal polysaccharide (groups A, C, Y and W-135) diphtheria toxoid conjugate vaccine (MCV4P) 10/12/2007 [facility] completed tetanus toxoid, reduced diph theria toxoid, and acellular pertussis vaccine, adsorbed 10/12/2007 [facility] completed varicella virus vaccine 10/12/2007 [facility] c ompleted diphtheria, tetanus toxoids and acellular pertussis vaccine 05/31/2001 [facility] completed measles, mumps and rubella virus vaccine 05/31/2001 [facility] completed poliovirus vaccine, inactivated 05/31/2001 [facility] completed varicella virus vaccine 12/13/1997 [facility] c ompleted diphtheria, tetanus toxoids and acellular pertussis vaccine 09/18/1997 [facility] completed haemophilus influenzae type b vaccine, PRP-T conjugate 09/18/1997 [facility] completed measles, mumps and rubella virus vaccine 06/16/1997 [facility] completed hepatitis B vaccine, pediatr ic or pediatric/adolescent dosage 03/20/1997 [facility] comp leted diphtheria, tetanus toxoids and acellular pertussis vaccine 1996 [facility] completed haemophilus influenzae type b vaccine, PRP-T conjugate 1996 [facility] completed poliovirus vaccine, live, oral 1996 [facility] completed diphtheria, tetanus toxoids and acellular pertussis vaccine 1996 [facility] completed haemophilus influenzae type b vaccine, PRP-T conjugate 1996 [facility] completed poliovirus vaccine, live, oral 1996 [facility] completed diphtheria, tetanus toxoids and acellular pertussis vaccine 1996 [facility] completed haemophilus influenzae type b vaccine, PRP-T conjugate 1996 [facility] completed poliovirus vaccine, live, oral 1996 [facility] completed hepatitis B vaccine, pediatr ic or pediatric/adolescent dosage 1996 [facility] comp leted hepatitis B vaccine, pediatr ic or pediatric/adolescent dosage 1996 [facility] comp leted Encounters Encounter Type Encounter Reason Primary Diagnosis Location Date Ambulatory [facility] 10/11 [facility]ulatory [facility] 08/10/2024 [facility]ulatory [facility] 07/0 06/2024 Ambulatory [facility] 06/0 07/2024 Ambulatory [facility] 0605/2024 Ambulatory [facility] 07/11 Ambulatory [facility] 07/11 Care Team Organization Name Specialty Phone Email Start Date End Da te [facility] 07/21/2024 [facility] 01/18/2022 10/30/2023
--- OUTSIDE RECORDS SUMMARY | 2024-12-27 14:43 | XMS_ITS | Clinical Summary ---
Author Organization [facility] Address [address] [place] [address] Care Team Providers Care Financial Underwriter Name Role Phone Torito Kumar MD Primary Care Provider [phone] Allergies Active Allergy Reactions Criticality Noted Date Comments Tuberculin Purified Protein Derivative Hives 08/04/2021 Medications Medication Sig Dispensed Refills Start Date End Date Status ondansetron (ZOFRAN-ODT) 8 MG disintegrating tablet Take 1 tablet (8 mg total) by mouth continuous prn. 0 11/29/2020 Active betamethasone, augmented, (DIPROLENE) 0.05 % ointmentIndications:P soriasis Apply topically 2 (two) times a day. 45 g 2 12/29/2022 Active Zoryve 0.3 % CREA Apply TO psoriasis once daily FOR maintenance. 0 10/10/2023 Active tretinoin (RETIN-A) 0.05 % cream APPLY SPARINGLY TO FACE AT BEDTIME FOR ACNE. 0 09/15/2023 Active venlafaxine (EFFEXOR-XR) 37.5 MG 24 hr capsuleIndications:An xiety Take 1 capsule (37.5 mg total) by mouth daily. 90 capsule 1 11/09/2023 Active Active Problems Problem Noted Date Diagnosed Date COVID-19 02/27/2023 Overview: 03/08/21 Acne 01/25/2019 05/09/2023 Psoriasis 12/14/2018 05/09/2023 Anxiety disorder 11/21/2018 Overview: used ot take lexapro & xanax Impression - [id number]: not controlled. but denies SI/HI. PHQ9 score [...] bridge. f/u in 3 weeks. Impression - [id number]: not controlled. but denies SI/HI. PHQ9 score [...] send xanax in PRN to help bridge. 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 f/u in 3 weeks. Seasonal allergies 09/21/2018 05/09/2023 S/P anterior cruciate ligament surgery 3 Resolved Problems Problem Noted Date Diagnosed Date Resolved Date Subclinical hypothyroidism 04/29/2021 0 08/04/2021 Irritable bowel syndrome with constipation 08/05/2020 10/27/2022 Asthma 08/27/2019 10/27/2022 Mild intermittent asthma without complication 10/19/19 16 10/27/2022 Overview: Overview: Updating Problem list with IMO User name Immunizations Name Administration Dates Next Due DTaP 05/31/2001, 8,1996,10/24,1996 HIB (PRP-T) ActHIB / Hiberix - 4 dose series 09/18/1997,1996,1996,08/08 HPV Quadrivalent 04/23/2008,12/19/2007, 8 Hepatitis B (Pediatric / Ado lescent 3 dose) Engerix 03/20/1997,1996,1996 IPV 05/31/2001 Influenza Quad (Fluarix/Fluzone/FluLaval) 0.5mL (SD-IIV4) 11/16/2018,02/03/2015 Influenza Quad (Flucelvax) 0 .5mL >6mon (ccIIV4) 12/23/2020 MMR 05/31/2001,06/16/1997 Meningococcal Conjugate (Menactra) 10/12/2007 Meningococcal Polysaccharide (inactive) 11/02/2012 OPV 08/26/2009, 7,1996,08/08 Tdap 11/16/2018,10/12/2007 Varicella 10/12/2007,12/13/1997 Family History Medical History Relation Name Comments ADD / ADHD Brother Hyperlipidemia Father Jone Hypertension Father Jone Cancer Maternal Grandfather Mike esophag eal Asthma Mother Emily Hyperlipidemia Mother Emily Heart disease Paternal Grandfather SC & A fib Relation Name Status Comments Brother Alive Father Jone Alive Maternal Grandfather Mike Mother Emily Alive Paternal Grandfather Social History Tobacco Use Types Packs/Day Years Used Date Smoking Tobacco: Never Smokeless Tobacco: Never Tobacco Cessation:Counseling Given: Not Answered Alcohol Use Standard Drinks/Week Comments Yes 0 (1 standard drink = 0.6 oz pur e alcohol) occ'l Sex and Gender Information Value Date Recorded Sex Assigned at Not on file Gender Identity Not on file Sexual Orientation Not on file Job Start Date Occupation Industry Not on file Not on file Not on file Last Filed Vital Signs Vital Sign Reading Time Taken Comments Blood Pressure 112/86 11/09/2023 10:54 AM EDT Pulse 72 11/09/2023 10:54 AM EDT Temperature 36.6 C (97.8 F) 11/09/2023 10:54 AM EDT Respiratory Rate 18 05/09/2023 8:34 AM EST Oxygen Saturation 98% 11/09/2023 10:54 AM EDT Inhaled Oxygen Concentration - - Weight 74.5 kg (164 lb 3.2 oz) 11/09/2023 10:54 AM EDT Height 167.6 cm (5' 6 ) 11/09/2023 10:54 AM EDT Body Mass Index 26.5 11/09/2023 10:54 AM EDT Plan of Treatment Health Maintenance Due Date Last Done Comments Hepatitis C Screening 1996 COVID-19 Vaccine (#1) 1996 Pneumococcal Vaccine (1 of 2 - PCV) 2002 BMI Counseling 10/28/2023 10/27/2022, 03/26/2020 Depression Screening 10/28/2023 10/27/2022, 03/26/19 21 Cervical Cancer Screening (Pap Smear) 12/24/2023 12/23/2020 Preventative Health Evaluation 11/08/2024 11/09/2023, 10/27/2022, 10/27/2022, Additional history exists Influenza Vaccine (#1) 2024 , 11/16/2018, 02/03/2015 DTap / Tdap / Td (8 - Td or Tdap) 11/16/2028 11/16/2018, 10/12/2007, 05/31/2001, Additional history exists Hepatitis B Vaccines Completed 03/20/1997, 1996, 1996 RSV Ped < 20 months Aged Out No longe r eligible based on patient's age to complete this topic Care Teams Financial Underwriter Relationship Specialty Start Date End Date Torito Kumar MD PCP - General Family Medicine 08/27/19
[2024-12-27 14:50] LABS: Hematocrit 40.7 % (37.0-47.0); Hemoglobin 13.5 g/dl (12.0-16.0); Mean Corpuscular HGB Conc 33.2 g/dl (31.0-35.0); Mean Corpuscular Hemoglobin 28.3 pg (27.0-33.0); Mean Corpuscular Volume 85.3 fL (80.0-98.0); NRBC Abs Auto 0.000 X10*3/uL (0.0-0.012); NRBC Pct Auto 0.0 /100WBC (0.0-0.2); Platelet Count 221 X10*3/uL (160-400); Red Blood Count 4.77 X10*6/uL (4.20-5.50); White Blood Count 5.0 X10*3/uL (4.8-10.8)
[2024-12-27 16:24] LABS: Folate 4.5 ng/mL (> or = 4.0); Vitamin B12 936 pg/mL (200-900)
[2024-12-27 17:08] LABS: Alanine Aminotransferase 18 U/L (0-31); Albumin Level 4.4 g/dL (3.5-5.0); Alkaline Phosphatase 69 U/L (39-117); Anion Gap 13 (12-20); Aspartate Amino Transferase 27 U/L (5-31); Blood Urea Nitrogen 13 mg/dL (9-16); Calcium 9.2 mg/dL (8.4-10.2); Carbon Dioxide 25 mmol/L (22-29); Chloride 105 mmol/L (96-108); Cholesterol 171 mg/dL (<200); Estimated Glomerular Filt Rate > 60; HDL Cholesterol 40 mg/dL (>40); Potassium 4.2 mmol/L (3.3-5.1); Sodium 139 mmol/L (135-145); Total Protein 7.3 g/dL (6.5-8.0); Triglycerides 84 mg/dL (<150)
[2024-12-27 17:49] LABS: Ferritin 63 ng/mL (10-122)
[2025-01-03 12:53] LABS: Testosterone, Free 1.3 pg/mL (0.1-6.4)
== END 2024-12-27 10:45 | disposition home or self-care (01) ==
LOC: HO.WFDLDS 10:44
PROVIDERS: PCP Nurse Practitioner Family; Visit Provider Nurse Practitioner Family
DX: Z30.09 Encounter for other general counseling and advice on contraception (principal); Z28.21 Immunization not carried out because of patient refusal; Z76.89 Persons encountering health services in other specified circumstances; N92.0 Excessive and frequent menstruation with regular cycle; L65.9 Nonscarring hair loss, unspecified; K90.41 Non-celiac gluten sensitivity; L68.0 Hirsutism; L40.9 Psoriasis, unspecified; E66.9 Obesity, unspecified; R14.0 Abdominal distension (gaseous); R10.9 Unspecified abdominal pain; F41.1 Generalized anxiety disorder; Z87.828 Personal history of other (healed) physical injury and trauma; Z86.79 Personal history of other diseases of the circulatory system; Z83.79 Family history of other diseases of the digestive system
CPT/HCPCS: 36415; 80053; 80061; 82306; 82607; 82728; 82746; 83036; 84144; 84402; 84403; 84443; 85027; 96127

== ENCOUNTER 2025-01-01 18:16 | Outpatient (REF) | payer BC, SELFPAY ==
--- OUTSIDE RECORDS SUMMARY | 2025-01-01 22:19 | XMS_ITS | Clinical Summary ---
Author Organization [facility] Address [address] [place] [phone] Phone Care Team Providers Care Industrial Hygiene Technician Name Role Phone Torito Kumar MD Primary Care Provider [phone] Surgical History Surgery Date Site/Laterality Comments KNEE [...] Hyperlipidemia Mother Emily Heart disease Paternal Grandfather AR & A fib Relation Name Status Comments [...] Case Results Patient Name: HYUN RAYMOND MR#: [id number] Collected Date: 12/23/2020 Reported Date: 12/28/2020 Specimen #[id number] Final Diagnosis Satisfactory for evaluation. Endocervical transformation [...] HPV nucleic acid amplification assay manufactured by [employer] and performed on the [employer] System was used for the qualitative detection [...] liquid based specimens is performed by the [facility] unless otherwise stated. Test Performed by: [address] [address] Eunice Booker M.D., Director HISTORICAL TESTING LAB RESULTING AGENCY Comment:MR#: [id number] 12/23/2020 Torito Kumar MD LAB CYTOLOGY ORDERABLES Final Result HISTORICAL TESTING LAB RESULTING AGENCY from Last 3 Months or Most Recently Relevant to Health Maintenance Insurance [facility] Care Teams Industrial Hygiene Technician Relationship Specialty Start Date End Date Torito Kumar MD PCP - General Family Medicine 08/27/19
--- OUTSIDE RECORDS SUMMARY | 2025-01-01 22:19 | XMS_ITS | Data Portability ---
Author Organization [facility], [facility] Address [address] [place] [address] Care Team Providers Care Injection Maintenance Technician Name Role Phone JEFFREY CLARK Burner Hand Assessment Encounter Date Assessment Date Assessment LastModified by Organization Details LastModified Time 09/29/2023 09/29/2023 Chief Complaint: Left upper extremity biceps muscle strain, work-related injury HPI: Hyun, a 28-year-old ynspr-alvk-fptdwf nt female, presents with a left bicep [...] as much as possible and has taken iczl-zbd-iakhgue naproxen for pain relief. She experiences increased [...] grossly intact. Eyes: Sclera are not blue. 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 Full extraocular motion. [...] Imaging: X-rays ordered, obtained and reviewed at [facility]. These images included Grashey, scapular and axillary views of the left shoulder. No acute fractures or dislocations. Normal glenoid humeral joint space. Normal acromial humeral distance. No acromial clavicular joint arthrosis. Type II acromion. Normal soft tissue contours. No lesions of the humerus. 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 This note was generated with [facility] [employer] speech recognition grade tamper dictation software. Please excuse any errors that may have been overlooked during review of this note. Sometimes, these errors may affect the content or meaning of a given sentence. Please call for corrections. [email or web address] Not available 09/29/2023 10:47:53 10/19/2023 10/19/2023 Chief Complaint: Left upper extremity biceps muscle strain, work-related injury HPI: Hyun, a 28-year-old yocib-vwoj-oxgppp nt female, presents with a left bicep [...] as much as possible and has taken fxdn-qom-yhmuiqq naproxen for pain relief. I first evaluated [...] grossly intact. Eyes: Sclera are not blue. 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 Full extraocular motion. 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 This note was generated with [facility] speech recognition grade tamper dictation software. Please excuse any errors that may have been overlooked during review of this note. Sometimes, these errors may affect the content or meaning of a given sentence. Please call for corrections. [email or web address] Not available 10/19/2023 14:14:51 11/21/2023 11/21/2023 Chief Complaint: Left upper extremity biceps muscle strain, work-related injury HPI: Hyun, a 28-year-old kzfly-tntc-olimel nt female, presents with a left bicep [...] as much as possible and has taken qffb-fyw-kjssiae naproxen for pain relief. I first evaluated [...] grossly intact. Eyes: Sclera are not blue. 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 Full extraocular motion. 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 [facility] speech recognition grade tamper dictation software. Please excuse any errors that may have been overlooked during review of this note. Sometimes, these errors may affect the content or meaning of a given sentence. Please call for corrections. [email or web address] Not available 11/21/2023 11:44:41 Plan of Treatment Reminders Order Date Submit Date Provider Last Modified By Organization Details Last Modified Time Details Appointments None recorded. Lab None recorded. Referral physical therapist referral - Eccentric strengtheni ng and modalities as tolerated. 2023 024 [email or web address] 4 [facility] - [facility] , [address] [facility] , [address], [place], [address], 4 17:29:07 physical therapist referral - Eccentric strengtheni ng and modalities as tolerated. 2023 024 [email or web address] Not available 13:21:11 Procedures None recorded. Surgeries None recorded. Imaging XR, shoulder, 2 or more view - rm 217 lt shldr cz protocol 2023 024 [email or web address] 4 [facility], [address], [facility] [address], [place], [address], 4 11:28:32 Medication Orders None recorded. Patient TargetsNo targets recorded. Patient InstructionsNo instructions recorded. Reason for Referral Physical Therapist Referral for Tendinitis of long head of biceps brachii of left shoulder Eccentric strengthening and modalities as tolerated. Referring Physician: Michael Ding, Orthopedic Surgery, [id number] Encounter Date: 09/29/2023 Physical Therapist Referral for Biceps tendinitis Eccentric strengthening and modalities as tolerated. Referring Physician: Michael Ding, Orthopedic Surgery, [id number] Encounter Date: 10/19/2023 Results Created Date Observation Date Name Description Value Unit Range Abnormal Flag Note LastModifiedBy Organization Detail LastModifiedTime 09/29/19 24 09/29/2023 XR, shoul bob, 2 or more view http:/ [email or web address] ?Encry pted=s hAaTro YD8dLq bEUv6g %2BXZw aYqtaq 0bqfl% 2Fg9IQ a4ajBk vP9nXo QUaueC m3YtLR FvZlgJ JJ8mAn HZtai3 2f6443 AC0KpY nqNWaL eUC8mr 84%3D INTERFACE [facility] [address], [place], [address], 09/29/2023 10:22:08 09/29/19 24 09/29/2023 XR, shoul bob, 2 or more view [email or web address]:/ [email or web address] ?Encry pted=s hAaTro YD8dLq bEUv6g %2BXZw aYqtaq 0bqfl% 2Fg9IQ a4ajBk vP9nXo QUaueC m3YtLR FvZlgJ JJ8mAn HZtai3 6v4125 AC0KpY nqNWaL eUC8mr 84%3D INTERFACE [facility] [address] [facility] [address], [place], [address], 09/29/2023 10:22:11 Result Notes Documentation Provider Name and Address Organization Details Recorded Time Xr, Shoulder, 2 Or More View : [email or web address] Encrypted=clTwQrhIH6tVrrA Uv6g%4KEUmqElyyn8iadc%2Fg 1HPf6wxWxkC4dGdMBlrzRv4Md WRBxYuoBPD6rPyGXrpo12e434 1BW6YqAjgTQgXfEV3ct62%3D Not Available [facility] 09/29/2023 10:2 2:09 Xr, Shoulder, 2 Or More View : [email or web address] Encrypted=aqXeWdwRK5pSeeO Uv6g%3BBJotXpcwe7ghlt%2Fg 7RMd0nhNzsU9kVfQEkwdBi5Oz MVHmYkxYSK4xWfBTtft11r631 3DP9BpFsoBZoFbAU9af46%3D Not Available [facility] 09/29/2023 10:2 2:11 Procedures Surgical History Date Name Laterality Status Provider Name and Address Organization Details Recorded Time 7 Knee Surgery completed JAZIEL Rojas [facility] 09/29/2023 10:16:06 06/13/201 3 Knee Surgery completed JAZIEL BUSTAMANTE [facility] 09/29/2023 10:16:06 Imaging Results None recorded. Procedure Notes None recorded. Medical Equipment None Reported. Allergies Allergen ID Allergen Name Allergen Category Reaction Reaction Severity Criticality Documentation Date Start Date Code Code System Note Provider Name and Address Organization Details Recorded Time 117692 preservat rasta free medicatio n Not available Not available Not available 09/29/20232020 JAZIEL cope [place] - [facility] 10:16:06 Medications Name Sig Start Date Stop [...] Details Last Updated DateTime 09/29/2023 165.1 cm 19212.78 g JAZIEL BUSTAMANTE [facility] 09/29/2023 10:52:33 Date Recorded Body height Body mass index (BMI) Body weight Provider Name and Address Organization Details Last Updated DateTime 10/19/2023 165.1 cm 26.6 kg/m2 50916.78 g JAZIEL BUSTAMANTE [facility] 10/19/2023 13:37:21 Date Recorded Body height Body mass index (BMI) Body weight Provider Name and Address Organization Details Last Updated DateTime 11/21/2023 165.1 cm 26.6 kg/m2 38779.78 g JAZIEL BUSTAMANTE [facility] 11/21/2023 11:21:15 Social History Question Answer Notes LastModified by [employer] ion Details LastModified Time Tobacco Smoking Status Never Smoker JAZIEL BUSTAMANTE [facility] 09/29/2023 10:16:06 What Is Your Relationship Status? Single Information not available 09/29/2023 Sex: Unknown Functional Status Question Answer Note LastModified by [employer] ion Details LastModified Time How many times per week do you consume alcohol? Less than 1 time per week [email or web address] Information not available 09/29/2023 Do you use any illicit or recreational drugs? No [email or web address] Information not available 09/29/2023 Do you or have you ever used any other forms of tobacco or nicotine? No [email or web address] Information not available 09/29/2023 Do you or have you ever used e-cigarettes or vape? Never used electronic cigarettes [email or web address] Information not available 09/29/2023 Mental Status None recorded. Family History Nothing Reported. Medical History Condition Response Allergies/Hayfever Y Gynecological HistoryNo gynecological history recorded. Obstetrics History GPAL:G 0 P 0 0 0 0 Past Encounters Encounter ID Performer Location Encounter Start Date Encounter Closed Date Diagnosis/Indication Diagnosis SNOMED-CT Code Diagnosis ICD10 Code Diagnosis IMO Codes Diagnosis Note [id number] MD Benji Marquis [address] [place] [address] 09/29/2023 09:59:54 10/24/2023 14:38:16 Pain of left shoulder joint 3884827827 4578697 M25.512 Tendinitis of long head of biceps brachii of left shoulder 765862658 M75.22 Left biceps strain 07072 37751 4784658 S46.212A [id number] MD Benji Marquis [address] [place] [address] 10/19/2023 13:20:32 11/16/2023 07:47:14 Biceps tendinitis 216941078 M75.22 Strain of biceps brachii muscle and/or tendon 192457168 S46.112D [id number] Michael Ding [facility] [address] [place] [address] [address] [place] [address] 11/21/2023 11:16:41 12/14/2023 12:15:23 Strain of muscle of left upper arm 1565092474 7395661 S46.912D Health Concerns Section Related Observation LastModified by Organization Detai ls LastModified Time None Recorded Concern Status LastModified by Organization Details LastModified Time None Recorded Advance Directives Directive None Recorded Payers Insurance Date Sequence Insurance Name Policy Number Policy Tam Covered Member ID Tam Member ID Guarantor Name 09/26/2023 [facility] Hyun Raymond OBGyn Episode No OBEpisode recorded.
--- OUTSIDE RECORDS SUMMARY | 2025-01-01 22:19 | XMS_ITS | Clinical Summary ---
Author Organization [facility] Address [address] [place] [address] Care Team Providers Care Health Promotion Manager Name Role Phone Torito Kumar MD Primary Care Provider [phone] Allergies Active Allergy Reactions Criticality Noted Date [...] ot take lexapro & xanax Impression - 11Sne8735: not controlled. but denies SI/HI. PHQ9 score [...] bridge. f/u in 3 weeks. Impression - 06Fjg8425: not controlled. but denies SI/HI. PHQ9 score [...] send xanax in PRN to help bridge. 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 f/u in 3 weeks. Seasonal allergies [...] Hyperlipidemia Mother Emily Heart disease Paternal Grandfather [place] & A fib Relation Name Status Comments [...] age to complete this topic Care Teams Health Promotion Manager Relationship Specialty Start Date End Date Torito Kumar MD PCP - General Family Medicine 08/27/19
--- OUTSIDE RECORDS SUMMARY | 2025-01-01 22:19 | XMS_ITS | Clinical Summary ---
Author Organization [facility] Address [address] [place] [address] Care Team Providers Care Video Production Intern Name Role Phone Ashleigh Lisa NP Primary Care Provider [phone] Medications ALPRAZolam (XANAX) 0.25 MG tablet TAKE [...] Anxiety disorder 11/21/2018 Overview (04/16/2023): Impression - 14Bql7469: not controlled. but denies SI/HI. PHQ9 score [...] bridge. f/u in 3 weeks. Impression - 14Gck4165: not controlled. but denies SI/HI. PHQ9 score [...] send xanax in PRN to help bridge. 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 f/u in 3 weeks. Contraception management [...] PM EDT FASTING: YES Testing Performed at: [facility], [address] [place] [address], , Computer Forensics Technician: Hilary Post MD CL#[id number] Ashleigh Lisa SSN/SSBN WEAP[employer] EQUIPMENT OPERATOR LABORATORY Final Result PHCT CONVERSIONS from Last 3 Months or Most Recently Relevant to Health Maintenance Care Teams Video Production Intern Relationship Specialty Start Date End Date Ashleigh Lisa, SSN/SSBN WEAPONS EQUIPMENT OPERATOR [address] [place] [address] PCP - General 10/17/22
[2025-01-10 02:09] LABS: Calprotectin, Fecal 48 mcg/g
== END 2025-01-01 18:17 | disposition home or self-care (01) ==
LOC: HO.LNP 18:16
PROVIDERS: Visit Provider Nurse Practitioner Family
DX: N92.0 Excessive and frequent menstruation with regular cycle (principal); K90.41 Non-celiac gluten sensitivity; L65.9 Nonscarring hair loss, unspecified; L68.0 Hirsutism; R14.0 Abdominal distension (gaseous); R10.9 Unspecified abdominal pain; Z83.79 Family history of other diseases of the digestive system
CPT/HCPCS: 82043; 82570; 83993; 87338

== ENCOUNTER 2025-02-28 08:44 | Outpatient (AMB) | payer BC, SELFPAY ==
--- NOTE | 2025-02-28 08:45 | A.OFFPC_ITS ---
Vital Signs 02/28/25 08:48 Height 5 ft 5 in Weight 184 lb 2 oz BMI 30.6 BP 118/70 Blood Pressure Location Lt brachial Position Sitting Respiration 12 Pulse 79 Pulse Source Pulse Oximeter Temp 97.2 F Temp Source Oral Pulse Oximetry (%) 99 Oxygen Delivery Method Room Air Intake Visit Reasons: 4 weeks CPE/Lab review Intake Note: CPE and review labs. Product/Industry Consultant Required: No Allergies preservative Allergy (Severe, Uncoded 02/28/25 08:46) Unknown Medication List - Last Reconciled 02/28/25 by Renate Segundo, [facility]- cholecalciferol (vitamin D3) 125 mcg PO .3xweek escitalopram oxalate (Lexapro) 5 mg PO DAILY ferrous sulfate 325 mg PO DAILY omega 8-dbd-qif-fish oil 300-1,000 mg (Fish Oil) 1 cap PO DAILY Tobacco use date assessed: 02/28/25 Dental Screening Dental Screen Date: 02/28/25 Did you have a dental visit in the last 12 months?: Yes Did you have a dental problem in the last 6 months where you did not have access to dental care?: No Was dental information given to patient?: Patient has dentist HPI HPI Comments History of Present Illness Details 29 y/o F with psoriasis, obesity, eczema , gluten sensitivity, LIBERTY, Fhx celiac, PVC, lattice degeneration bilat (Mom also has this) surgery: R ACL reconstruction, R patella tendon debridement Fhx: Mom asthma, HLD; Dad HTN HLD; PGM HTN HLD CVD; MGF esop ca; PGF HTN HLD CVD; brother alive and well Social: working [employer]; live with ance, getting in July 2025 Health Maintenance Flu 12/2024 Tdap declined Pap referred to [facility] will est care w/ [facility] has appt 04/2025 Optho wears glasses, last exam Apr 2024 History of Present Illness The patient is a 29 year old female presenting for a follow up on her labs & for CPE Anxiety: - The patient recently saw a psychiatris t and has restarted escitalopram. - She is currently taking 5 mg and antic ipates the dose will be increased in a couple of weeks. Gastrointestinal Issues and Gluten Sensitivity: - The patient experienced significant st omach upset for about a month. - She has been avoiding gluten because s he feels better and confirms her stomach reacts if she ingests it. - A prior stool calprotectin level was b orderline normal at 48. - A previous stool sample for occult blo od was positive, but it was collected while she was menstruating. - She has a history of an E. coli infect ion diagnosed by a wellness provider, for which she was treated with antimicrobials and probiotics. - She also reported a history of elevate d H. pylori, but a subsequent test was negative. - For symptom management, she uses a pro biotic formulated for IBS symptoms and activated charcoal. - She has an initial appointment with a GI specialist scheduled for April. Palpitations/PVCs: - The patient experiences an increase in PVCs, particularly the week before her period. - She has a low resting heart rate in e mid to high 40s while sleeping. Iron Deficiency Anemia: - The patient reports getting dizzy when standing up quickly. - She takes an fvih-kin-mjwasow iron (fe rrous sulfate) supplement. - With supplementation, her hemoglobin i s 13.5 and her ferritin is 63, but it is suspected she would be anemic without it. Hirsutism and Hormonal Imbalance: - The patient reports several thicker miranda irs on her chin and low libido. - Her periods are reported as normal, an d she has never been or tried to conceive. Labs done day 4 of cycle - There is a concern for PCOS. - She is on a waiting list to establish care with a [facility] practice. Health Maintenance: - The patient takes fish oil (omega-3s) and a high-dose vitamin D supplement every few days. - Her vitamin D level was high at 81.1 w hile taking a high dose. - She has been diagnosed with bilateral lattice degeneration and has annual eye exams; her last one was in Mar 2024 Past Medical History - Anxiety, currently treated with Lexapr o - Premature ventricular contractions (PV Cs) - Iron deficiency anemia, managed with s upplementation - Hypervitaminosis D - Hirsutism - History of E. coli infection - History of H. 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 - No family history of skin cancer. Review of Systems - Constitutional: Denies fever. - Cardiovascular: Reports palpitations ( PVCs), which worsen before her period. - Gastrointestinal: Reports stomach upse t after gluten ingestion. - Neurological: Reports dizziness upon s tanding quickly. - Endocrine: Reports new growth of thick er hairs on her chin. - Genitourinary/Reproductive: Reports lo w libido. Her periods are normal. Denies . - Psychiatric: Reports anxiety and possi ble seasonal affective symptoms. - Eyes: Has bilateral lattice degenerati on. Denies bright flashes or a sudden increase in floaters. - Skin: Reports a stable congenital david hmark (hemangioma) and denies changes. Physical Exam General: Well developed, well nourished, in no acute distress. Appears stated age. Head: Normocephalic, atraumatic. Eyes: Pupils are equal, round and reactive to light and accommodation. Conjunctivae are clear. Scleras nonicteric bilat. Vision grossly normal. Ears: TMs clear AU, EACS WNL Nose: Patent, without discharge. Neck: No carotid bruit bilat. Supple, no adenopathy or thyromegaly. Breast: Edu on SBE Lungs: Clear to auscultation bilaterally. No rales, rhonchi or wheeze noted. Good air flow in all johansen. Heart: Regular rate and rhythm. No murmurs, click, rubs or gallops are noted. Patient experiences PVCs, especially before menstruation. Abdomen: Bowel sounds present in all quadrants. The abdomen is soft, nontender, with no masses or organomegaly noted. No hernias are noted. Patient has a history of stomach issues and is advised to avoid gluten. : Deferred. Reviewed recommendations for routine [facility]. Patient is on a waiting list for a [facility] appointment. Pulses: Peripheral pulses are equal and palpable bilaterally. Extremities: No clubbing, cyanosis nor edema is noted. Neurologic: Gait and station normal. Cranial Nerves 2-12 intact. Motor strength grossly symmetrical and intact. No sensory loss. Balance normal. Skin: No rashes, ulcers, or lesions noted. Turgor is good. Skin color is good. Hair and nails are without abnormalities. Large flat cafe au laite spot L back; Mild hursutism Psych: Normal eye contact, affect and mood appropriate, and normal interactions. Patient is alert and appropriate to context. Patient is seeing a psychiatrist a nd is on Lexapro 5 mg. Results - CBC (12/27): Normal, with hemoglobin o f 13.5. - Comprehensive Metabolic Panel: Electro lytes and kidney function are normal. Bilirubin, liver enzymes, and protein stores are normal. - Hemoglobin A1c: 5.3%. - Ferritin: 63 (normal). - Lipid Panel (non-fasting): LDL cholest justine is mildly high at 115. - Vitamin B12: Mildly elevated at 936. - Vitamin D: High at 81.1. - Thyroid studies: Normal. - Hormonal Panel: Progesterone normal. T estosterone level requires further review. - Urinalysis: Normal. - Stool Calprotectin: 48 (borderline nor mal). - H. pylori Test: Not detected. Medical Decision Making The patient, a 29-year-old female, presented for a follow-up visit to review her lab results and discuss ongoing concerns including PVCs, gastrointestinal issues, and hormonal symptoms. Her lab work is largely reassuring; CBC is normal with iron supplementation, and there is no evidence of diabetes. The elevated vitamin D level warrants a dose reduction to prevent potential complications like kidney stones. Her GI symptoms appear well-managed by avoiding gluten, and the borderline calprotectin supports the plan for GI specialist follow-up. A prior positive stool occult blood test was likely a false positive due to menstrual contamination, but a repeat test is prudent for confirmation. For her palpitations, which have a premenstrual pattern, as-needed metoprolol 25 mg immediate-release is a safe and appropriate option, given her reliability and low resting heart rate without conduction abnormalities. The symptoms of hirsutism and low libido,raise suspicion for PCOS, making the scheduled [facility] consultation crucial. I will review her hormone levels in the context of her menstrual cycle and this was normall. The patient is appropriately engaged with specialists for her psychiatric, gastrointestinal, and gynecological care, which I will continue to support. The plan is to continue supportive care, provide symptomatic treatment for palpitations, and await specialist evaluations before considering further changes in management. Plan Health Maintenance - The patient should schedule her annual eye exam. - Follow-up is scheduled for one year fo r a physical, or as needed after her specialist consultations. 1. Anxiety - The patient has restarted Lexapro 5 mg and is under the care of an outside psychiatrist. She will continue with their management plan. 2. Palpitations/Pvcs - Prescribed metoprolol 25 mg immediate- release to be taken as needed for palpitations. - The patient was advised she can split the tablet in half (12.5 mg) if desired. She understands how to monitor herself and will report on its effectiveness. 3. Gastrointestinal Issues And Health Sc reening - The patient will continue to avoid glu ten to manage her symptoms. - She will proceed with her scheduled GI follow-up in April. - She was provided with a kit to repeat the stool occult blood test and instructed to perform the collection when she is not menstruating. 4. Hormonal Imbalance/Suspected Pcos - The patient will continue efforts to e stablish care with a [facility] specialist for further evaluation. 5. Nutritional And Supplement Management - Continue taking htql-dxg-loptifs iron supplement for anemia management. - Reduce high-dose vitamin D intake to a few times a week instead of daily due to elevated lab values. - Continue taking fish oil supplements a s desired. Patient Instructions - Continue taking Lexapro as directed by your psychiatrist. - We have sent a prescription for metopr olol 25 mg to your pharmacy. You can take one tablet by mouth as needed when you feel heart palpitations. You may also start with half a tablet if you prefer. - Continue taking your daily iron and fi sh oil supplements. - Reduce your high-dose vitamin D supple ment to only a few times a week instead of every day. - Continue to avoid gluten, as it seems to help your stomach problems. - We have given you a kit to test your s tool for hidden blood. Please complete this test when you are NOT on your menstrual period and return the cards to the lab. - Keep your appointments with the GI spe cialist in April and continue to seek an appointment with a [facility] specialist. - Schedule your annual eye exam. If you experience any new bright flashes of light or a sudden increase in floaters, contact your eye doctor immediately. - You may schedule a follow-up appointme nt in one year for a routine physical, or sooner if needed. Consent Patient was informed and verbally consented to the use of an ambient scribe for clinic note documentation during this visit. [facility] Medical History (Updated 02/28/25 @ 09:45 by Renate Segundo, BHUMIKA-FRANCY) ACL (anterior cruciate ligament) rupture Anxiety Eczema Palpitations Patellar tendon rupture Surgical History (Updated 12/27/24 @ 11:47 by Karina Krishnan MA) No pertinent past surgical history Family History (Updated 12/27/24 @ 11:50 by Karina Krishnan MA) Mother Asthma High cholesterol Father HTN (hypertension) High cholesterol Paternal Grandmother HTN (hypertension) High cholesterol Cardiovascular disease Mental health disorder Paternal Grandfather HTN (hypertension) High cholesterol Cardiovascular disease Maternal Grandfather Esophagus cancer Social History (Updated 12/27/24 @ 11:00 by Karina Krishnan MA) Household Members: Significant Other Both parents involved: No Caregiver staying overnight: No Housing: House Are you a primary customer care team coach to a significant other at home: No Do you presently have visiting nurse or other home services: No 75 years or older and lives alone: No Alcohol intake: never Patient Tobacco Use Status: Never used Tobacco e-Cigarette/Vaping Use: Never Used Second Hand Smoke Exposure: No service: No Current occupational status: employed 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 1. Little interest or pleasure in doing things: not at all 2. Feeling down, depressed, or hopeless: not at all 3. Trouble falling or staying asleep, or sleeping too much: not at all 4. Feeling tired or having little energy: not at all 5. Poor appetite or overeating: not at all 6. Feeling bad about yourself - or that you are a failure or have let yourself or your family down: not at all 7. Trouble concentrating on things, such as reading the newspaper or watching television: several days 8. Moving or speaking so slowly that other people could have noticed. Or the opposite - being so fidgety or restless that you have been moving around a lot more than usual: not at all 9. Thoughts that you would be better off or of hurting yourself in some way: not at all Total score: 1 Depression Screening Interpretation: Negative Depression Screening Done: Yes 72021 - PHQ-9 Billing: Yes Source: Developed by Drs. Grant Odell, Alfred Blancaske and colleagues, with an educational johnna from [employer]. Thrive Questionnaire Date Thrive assessed: 02/28/25 I am a: Patient What is your living situation today?: I have a steady place to live Within the past 12 months, did the food you bought not last and you didn't have the money to get more?: Never true Within the past 12 months, did you worry whether your food would run out before you got money to buy more?: Never true Do you have trouble paying for medicines?: I choose not to answer this question Do you have trouble getting transportation to medical appointments?: No Do you have trouble paying your heating and electricity bill?: No Do you have trouble taking care of your child, family member or friend?: No Do you have trouble with day-to-day activities such as bathing, preparing meals, shopping, managing finances, etc.?: No Are you currently unemployed and looking for a job?: No Are you interested in more education?: Yes Please select the resources that you would like help with: None Currently or been in a relationship where the following occur: No concerns reported THRIVE Score: 0 LIBERTY-7 AMB Questionnaire LIBERTY-7 Date LIBERTY - 7 assessed: 02/28/25 Feeling nervous, anxious, or on edge: 0 = Not at all Not being able to stop or control worryin = Not at all Worrying too much about different things: 0 = Not at all Trouble relaxin = Not at all Being so restless that it is hard to sit still: 0 = Not at all Becoming easily annoyed or irritable: 0 = Not at all Feeling afraid as if something awful might happen: 0 = Not at all Total LIBERTY-7 score (0-4 normal; 5-9 mild; 10-14 moderate; 15-21 severe): 0 Source: Developed by Drs. Grant Odell, Alfred Blancas and colleagues, with an educational johnna from [employer]. LIBERTY-7 Assessment Billing LIBERTY-7 Assessment Tool: LIBERTY-7 Assessment 98251 Physical exam (Primary Care) Vital Signs: Last Vital Signs Temp 97.2 F 02/28/25 08:48 Pulse 79 02/28/25 08:48 Resp 12 02/28/25 08:48 BP 118/70 02/28/25 08:48 Pulse Ox 99 02/28/25 08:48 Oxygen Delivery Method Room Air 02/28/25 08:48 BMI result Body Mass Index 30.6 Tobacco/Smoking Status: Tobacco use Status Tobacco use date assessed 02/28/25 02/28/25 08:50 Patient Tobacco Use Status Never used Tobacco 02/28/25 08:50 e-Cigarette/Vaping Use Never Used 02/28/25 08:50 PHQ-9: PHQ-9 Score PHQ-9: Total score 1 02/28/25 08:50 Depression Screening Interpretation: Negative Thrive Assessment: Date of Thrive Assessment Date Thrive assessed 02/28/25 02/28/25 08:50 Currently or been in a relationship where the following occur: No concerns reported Results Reviewed Results Reviewed: Laboratory 12/27/24 Result Units Range Interpretation Provider Comments White Blood Count 5.0 X10*3/uL (4.8-10.8) Red Blood Count 4.77 X10*6/uL (4.20-5.50) Hemoglobin 13.5 g/dl (12.0-16.0) Hematocrit 40.7 % (37.0-47.0) Mean Corpuscular Volume 85.3 fL (80.0-98.0) Mean Corpuscular Hemoglobin 28.3 pg (27.0-33.0) Mean Corpuscular Hemoglobin Concent 33.2 g/dl (31.0-35.0) Red Cell Distribution Width 11.9 % (11.0-16.0) Platelet Count 221 X10*3/uL (160-400) Mean Platelet Volume 10.7 fL (9.4-12.3) Nucleated RBC Absolute Count (auto) 0.000 X10*3/uL (0.0-0.012) Nucleated Red Blood Cells % (auto) 0.0 /100WBC (0.0-0.2) Sodium Level 139 mmol/L (135-145) Potassium Level 4.2 mmol/L (3.3-5.1) Chloride Level 105 mmol/L (96-108) Carbon Dioxide Level 25 mmol/L (22-29) Anion Gap 13 (12-20) Blood Urea Nitrogen 13 mg/dL (9-16) Creatinine 0.71 mg/dL (0.5-1.4) Estimated Creatinine Clearance Calc Not Reportable Estimat Glomerular Filtration Rate > 60 Random Glucose 85 mg/dL (60-115) Estimated Average Glucose 105 mg/dL Hemoglobin A1c Percent 5.3 % (<6.0) Calcium Level 9.2 mg/dL (8.4-10.2) Ferritin 63 ng/mL (10-122) Total Bilirubin 0.9 mg/dL (0.0-1.0) Aspartate Amino Transf (AST/SGOT) 27 U/L (5-31) Alanine Aminotransferase (ALT/SGPT) 18 U/L (0-31) Alkaline Phosphatase 69 U/L (39-117) Total Protein 7.3 g/dL (6.5-8.0) Albumin 4.4 g/dL (3.5-5.0) Triglycerides Level 84 mg/dL (<150) Cholesterol Level 171 mg/dL (<200) LDL Cholesterol, Calculated 115 mg/dL (<100) High HDL Cholesterol 40 mg/dL (>40) Low Vitamin B12 Level 936 pg/mL (200-900) High 25-Hydroxy Vitamin D Total 81.1 ng/mL (>30) Folate 4.5 ng/mL (> or = 4.0) Thyroid Stimulating Hormone (TSH) 1.64 uIU/mL (0.32-4.0) Laboratory Result Units Range Interpretation Provider Comments Stool Calprotectin 48 mcg/g Laboratory Result Units Range Interpretation Provider Comments Progesterone Level <0.1 ng/mL Total Testosterone 14 ng/dL (2-45) Free Testosterone (Dialysis) 1.3 pg/mL (0.1-6.4) Stool Helicobacter pylori Antigen SEE NOTE NEGATIVE Coding Level of Care Code Est Pt Prev Care 18-39y(09228) Add On Preventative Visit Only Diagnoses Adult general medical exam Z00.00 Lattice degeneration of both retinas H35.413 LIBERTY (generalized anxiety disorder) F41.1 Hirsutism L68.0 Iron deficiency anemia due to chronic blood loss D50.0 Iron deficiency anemia type: chronic blood loss Additional Codes LIBERTY-7 Assessment Billing - LIBERTY-7 Assessment Tool: LIBERTY-7 Assessment 65681 ([id number]) PHQ-9 - 58243 - PHQ-9 Billing: Yes ([id number]) Assessment & Plan Assessment & Plan (1) Adult general medical exam: Onset Date: ~02/28/25 Code(s): Z00.00 - Encounter for general adult medical examination without abnormal findings Category: Medical (2) Lattice degeneration of both retinas: Comment: annual eye exams [facility] Mitchell Code(s): H35.413 - Lattice degeneration of retina, bilateral Category: Medical (3) LIBERTY (generalized anxiety disorder): Code(s): F41.1 - Generalized anxiety disorder Category: Medical (4) Hirsutism: Code(s): L68.0 - Hirsutism Category: Medical (5) Iron deficiency anemia: Code(s): D50.9 - Iron deficiency anemia, unspecified Category: Medical Qualifiers: Iron deficiency anemia type: chronic blood loss Qualified Code(s): D50.0 - Iron deficiency anemia secondary to blood loss (chronic) Plan /. Medications: New metoprolol tartrate 25 mg PO DAILY PRN 30 tabs 2RF palpitations Patient Instructions: Health screenings for women You should visit your health care provider from time to time, even if you are healthy. The purpose of these visits is to: Screen for medical issues Assess your risk for future medical problems Encourage a healthy lifestyle Update vaccinations and other preventive care services Help you get to know your provider in case of an illness Information Even if you feel fine, you should still see your provider for regular checkups. These visits can help you avoid problems in the future. For example, the only way to find out if you have high blood pressure is to have it checked regularly. High blood sugar and high cholesterol levels also may not have any symptoms in the early stages. A simple blood test can check for these conditions. There are specific times when you should see your provider or receive specific health screenings. The [place] Preventive Services Task Force publishes a list of recommended screenings. Below are screening guidelines for women ages 18 to 39. BLOOD PRESSURE SCREENING Your blood pressure should be checked at least once every 3 to 5 years if: Your blood pressure is in the normal range (top number less than 120 mm Hg and bottom number less than 80 mm Hg) You don't have risk factors for high blood pressure Ask your provider if you need your blood pressure checked more often if: The top number is 120 to 129 mm Hg or the bottom number is 70 to 79 mm Hg You have diabetes, heart disease, kidney problems, are overweight, or have certain other health conditions You have a first-degree relative with high blood pressure You are Black You had high blood pressure during a If the top number is 130 mm Hg or greater or the bottom number is 80 mm Hg or greater, this is considered stage 1 hypertension. Schedule an appointment with your provider to learn how you can reduce your blood pressure. Watch for blood pressure screenings in your area. Ask your provider if you can stop in to have your blood pressure checked. BREAST CANCER SCREENING Experts do not agree about the benefits of breast self-exams in finding breast cancer or saving lives. Talk to your provider about what is best for you. A screening mammogram is not recommended for most women under age 40. Your provider may discuss and recommend mammograms, MRI scans, or ultrasounds if you have an increased risk for breast cancer, such as: A mother or sister who had breast cancer at a young age (most often starting screening earlier than the age the close relative was diagnosed) You carry a high-risk genetic marker CERVICAL CANCER SCREENING Cervical cancer screening should start at age 21 years unless your provider advises otherwise. After the first test: Women ages 21 through 29 should have a Pap test every 3 years. Exoprts do not agree on whether HPV testing is recommended for this age group. Women ages 30 through 65 should be screened with either a Pap test every 3 years or the HPV test every 5 years or both tests every 5 years (called cotesting ). Women who have been treated for precancer (cervical dysplasia) should continue to have Pap tests for 20 years after treatment or until age 65, whichever is longer. If you have had your uterus and cervix removed (total hysterectomy), and you have not been diagnosed with cervical cancer or precancer (high grade cervical neoplasia), you do not need cervical cancer screening. CHOLESTEROL SCREENING Cholesterol screening should begin at: Age 45 for women with no known risk factors for coronary heart disease Age 20 for women with known risk factors for coronary heart disease Repeat cholesterol screening should take place: Every 5 years for women with normal cholesterol levels More often if changes occur in lifestyle (including weight gain and diet) More often if you have diabetes, heart disease, kidney problems, or certain other conditions DIABETES SCREENING You should be screened for diabetes starting at age 35 and then repeated every 3 years if you have no risk factors for diabetes. Screening may need to start earlier and be repeated more often if you have other risk factors for diabetes, such as: You have a first degree relative with diabetes. You are overweight or have obesity. You have high blood pressure, prediabetes, or a history of heart disease. Screening for diabetes should be done if you are planning to become and you are overweight and have other risk factors such as high blood pressure. DENTAL EXAM Go to the dentist once or twice every year for an exam and cleaning. Your dentist will evaluate if you need more frequent visits. EYE EXAM Have an eye exam every 5 to 10 years before age 40. If you have vision problems, have an eye exam every 2 years or more often if recommended by your provider. You should have an eye exam that includes an examination of your retina (back of your eye) at least every year if you have diabetes. IMMUNIZATIONS Commonly needed vaccines include: Flu shot: get one every year. COVID-19 vaccine: ask your provider what is best for you. Tetanus-diphtheria and acellular pertussis (Tdap) vaccine: have one at or after age 19 as one of your tetanus-diphtheria vaccines if you did not receive it as an adolescent. Tetanus-diphtheria: have a booster (or Tdap) every 10 years. Varicella vaccine: receive 2 doses if you never had chickenpox or the varicella vaccine. Hepatitis B vaccine: receive 2, 3, or 4 doses, depending on your exact circumstances. Measles, mumps, and rubella (MMR) vaccine: receive 1 to 2 doses if you are not already immune to MMR. Your provider can tell you if you are immune. Ask your provider about the human papillomavirus (HPV) vaccine if: You have not received the HPV vaccine in the past You have not completed the full vaccine series (you should catch up on this shot) Ask your provider if you should receive other immunizations if you have certain health problems that increase your risk for some diseases such as pneumonia. INFECTIOUS DISEASE SCREENING Women who are sexually active should be screened for chlamydia and gonorrhea up until age 25. Women 25 years and older should be screened for chlamydia and gonorrhea if at high risk. Screening for hepatitis C: All adults ages 18 to 79 should get a one-time test for hepatitis C. people should be screened at every . Screening for human immunodeficiency virus (HIV): All people ages 15 to 65 should get a one-time test for HIV. Depending on your lifestyle and medical history, you may also need to be screened for infections such as syphilis and HIV, as well as other infections. PHYSICAL EXAM All adults should visit their provider from time to time, even if they are healthy. The purpose of these visits is to: Screen for disease Assess your risk of future medical problems Encourage a healthy lifestyle Update your vaccinations and other preventive care services Maintain a relationship with a provider in case of an illness Your height, weight, and BMI should be checked at every exam. During your exam, your provider may ask you about: Depression and anxiety Diet and exercise Alcohol and tobacco use Safety issues, such as using seat belts, smoke detectors, and intimate partner violence Your medicines and risk for interactions SKIN SELF-EXAM Your provider may check your skin for signs of skin cancer, especially if you're at high risk, such as if you: Have had skin cancer before Have close relatives with skin cancer Have a weakened immune system OTHER SCREENING Talk with your provider about colon cancer screening if you have a strong family history of colon cancer or polyps, or if you have had inflammatory bowel disease or polyps yourself. Routine bone density screening of women under 40 is not recommended.
[2025-02-28 08:48] VITALS: BP 118/70; PULSE 79; RESP 12; TEMP 36.2; O2SAT 99; BMI 30.6
--- OUTSIDE RECORDS SUMMARY | 2025-02-28 08:58 | XMS_ITS | Clinical Summary ---
Author Organization [facility] Address [address] [place] [address] Care Team Providers Care Consumer Electronic Retail Specialist Name Role Phone Ashleigh Lisa NP Primary Care Provider [phone] Medications ALPRAZolam (XANAX) 0.25 MG tablet TAKE [...] Anxiety disorder 11/21/2018 Overview (04/16/2023): Impression - [id number]: not controlled. but denies SI/HI. PHQ9 score [...] bridge. f/u in 3 weeks. Impression - [id number]: not controlled. but denies SI/HI. PHQ9 score [...] send xanax in PRN to help bridge. 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 f/u in 3 weeks. Contraception management [...] PM EDT FASTING: YES Testing Performed at: [facility], [address] [place] [address], , Barrel Cap Setter: Hilary Post MD CL#[id number] Ashleigh Lisa [facility] Final Result PHCT CONVERSIONS from Last 3 Months or Most Recently Relevant to Health Maintenance Care Teams Consumer Electronic Retail Specialist Relationship Specialty Start Date End Date Ashleigh Lisa, ADVERTISER [address] [place] [address] PCP - General 10/17/22
--- OUTSIDE RECORDS SUMMARY | 2025-02-28 08:58 | XMS_ITS | Clinical Summary ---
Author Organization [facility] Prior to 08/10/24 Address [address] [place] [address] Care Team Providers Care Wood Preparation Supervisor Name Role Phone Torito Kumar MD Primary Care Provider [phone] Allergies Active Allergy Reactions Criticality Noted Date [...] ot take lexapro & xanax Impression - [id number]: not controlled. but denies SI/HI. PHQ9 score [...] bridge. f/u in 3 weeks. Impression - [id number]: not controlled. but denies SI/HI. PHQ9 score [...] send xanax in PRN to help bridge. 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 f/u in 3 weeks. Seasonal allergies [...] Hyperlipidemia Mother Emily Heart disease Paternal Grandfather [place] & A fib Relation Name Status Comments [...] age to complete this topic Care Teams Wood Preparation Supervisor Relationship Specialty Start Date End Date Torito Kumar MD PCP - General Family Medicine 08/27/19
--- OUTSIDE RECORDS SUMMARY | 2025-02-28 08:58 | XMS_ITS | Clinical Summary ---
Author Organization [facility] Address [address] [place] [phone] Phone Care Team Providers Care Timber Harvester Operator Name Role Phone Torito Kumar MD Primary Care Provider Surgical History Surgery Date Site/Laterality Comments KNEE [...] Hyperlipidemia Mother Emily Heart disease Paternal Grandfather [place] & A fib Relation Name Status Comments [...] 12/23/2020 Depression Screening 03/13/2024 COVID-19 Vaccine ( season) 2024 Influenza Vaccine (#1) 2024 , [...] Case Results Patient Name: HYUN RAYMOND MR#: [id number] Collected Date: 12/23/2020 Reported Date: 12/28/2020 Specimen #[id number] Final Diagnosis Satisfactory for evaluation. Endocervical transformation [...] HPV nucleic acid amplification assay manufactured by [employer] and performed on the [employer] System was used for the qualitative detection [...] screening: Interim clinical guidance, Gynecol Oncol. 2015 Fe, 136(2):178-82. Procedure/Addend um Electronically Signed Out By System Interface CHLAMYDIA, GC DNA PROBE Ordered: 12/24/2020 Reported: 12/25/2020 SOURCE: CERVIX CHLAMYDIA DNA PROBE: NEGATIVE GC DNA PROBE: NEGATIVE Procedure/Addend um Electronically Signed Out By System Interface Note: The Pap test is a screening test with an inherent false negative rate. Automated prescreening of all liquid based specimens is performed by the [employer] System unless otherwise stated. Test Performed by: [address] [address] Eunice Booker M.D., Director HISTORICAL TESTING LAB RESULTING AGENCY Comment:MR#: [id number] 12/23/2020 Torito Kumar MD LAB CYTOLOGY ORDERABLES Final Result HISTORICAL TESTING LAB RESULTING AGENCY from Last 3 Months or Most Recently Relevant to Health Maintenance Insurance [facility] Care Teams Timber Harvester Operator Relationship Specialty Start Date End Date Torito Kumar MD PCP - General Family Medicine 08/27/19
== END 2025-02-28 09:30 | disposition home or self-care (01) ==
LOC: HO.HMCFM 08:44
PROVIDERS: PCP Nurse Practitioner Family; Visit Provider Nurse Practitioner Family
DX: Z00.00 Encounter for general adult medical examination without abnormal findings (principal); H35.413 Lattice degeneration of retina, bilateral; F41.1 Generalized anxiety disorder; L68.0 Hirsutism; D50.0 Iron deficiency anemia secondary to blood loss (chronic)

== ENCOUNTER → 2025-02-28 08:44 | Outpatient (BNVA) | payer BC, OTHER, SELFPAY | PROVIDERS: PCP Nurse Practitioner Family; Visit Provider Nurse Practitioner Family | DX: Z00.00 Encounter for general adult medical examination without abnormal findings (principal); F41.9 Anxiety disorder, unspecified; L68.0 Hirsutism; R00.2 Palpitations; H35.413 Lattice degeneration of retina, bilateral; F41.1 Generalized anxiety disorder; D50.0 Iron deficiency anemia secondary to blood loss (chronic) | CPT/HCPCS: 96127 ==